=== PATIENT | female | born 1940 | race Caucasian/White ===

== ENCOUNTER 2017-04-29 20:25 | Inpatient (IN) | payer MEDICARE, OTHER ==
[~2017-04-29] VITALS: Ht 157.5 cm; Wt 47.4 kg
[~2017-04-29 20:25] MED LIST: ALBU.083IS; ALBU.083IS IH; ALBU3IS INH; ALBU90OI INH; ALBU90OI61 INH; ALEN70 PO; AMLO10 PO; ASPI81CH PO; ASPI81EC; ASPI81EC PO; AZEL137S; AZEL137S NS; AZIT250 PO; Albuterol2.5 MG/0.5 INH; BENZ100A PO; BISA5EC PO; BUPR150ER PO; BUPR150T2; BUPR150T2 PO; Bactrim Ds Tab1 EACH PO; Budeprion Xl300 MG; CEFU500T30 PO; CEPH500 PO; CLOT10; CLOT10 SS; CLOT10 SUSW; CLOTRIMAZOLE SUSW; CONEST.625; CONEST.625 PO; DESL5; DESL5 PO; DOCU100 PO; DOXY100 PO; ERYT500 PO; ESOM20; ESOM20 PO; ESTEST.625 PO; ESZO2 PO; FERR325; FERR325 PO; FLUSAL5005; FLUSAL5005 IH; FURO40 PO; Fosamax70 MG PO; GLYCOLAX; HYDACE5 PO; Keflex500 MG PO; LAVAP17G PO; LEVO750 PO; Levaquin500 MG PO; Levaquin750 MG PO; METO25ER; METO25ER PO; METOPROLOL PO; METPRE4DP PO; MIRALAX17 GM PO; MIRT15 PO; MONT10T; MONT10T PO; Monodox100 MG PO; Mucinex600 MG PO; NITR100CA PO; Nexium40 MG PO; POLY17UD; POLY17UD PO; POTCHL10ER PO; PRED20 PO; PRED5 PO; PREDNISONE PO; PRELIEF; PREMARIN VAGINAL CRE; PROM25 PO; PSECHLCR PO; Prednisone20 MG PO; RANI150 PO; ROSU10TA; ROSU5 PO; RXSULTRIDS PO; SPIRIVA; SULTRIDS PO; THEO300ERA PO; TIOT18; TIOT18 IH; TOPROL XL PO; VAGIFEM10 MCG VAG; VAGIFEM10 MCG VG; VALA500 PO; VITAMIN A TOP; VITAMIN D-32000 UNIT PO; VITAMIN D3 PO; Ventolin Soln3 ML INH; Zithromax250 MG PO; Zofran4 MG PO
[2017-04-29 21:41] LABS: BASOPHILS ABSOLUTE AUTO 0.01 K/mm3 (0.00-0.23); BASOPHILS PERCENT AUTO 0 % (0-2); EOSINOPHILS ABSOLUTE AUTO 0.26 K/mm3 (0.00-0.68); EOSINOPHILS PERCENT AUTO 2 % (0-6); Hematocrit 39.1 % (33.0-51.0); Hemoglobin 12.5 g/dL (11.5-16.0); IMMATURE GRAN ABSOLUTE AUTO 0.09 K/mm3 (0.00-0.10); IMMATURE GRAN PERCENT AUTO 1 % (0-1); LYMPHOCYTES ABSOLUTE AUTO 2.32 K/mm3 (0.84-5.20); LYMPHOCYTES PERCENT AUTO 17 % (21-46); MONOCYTES ABSOLUTE AUTO 1.18 K/mm3 (0.16-1.47); MONOCYTES PERCENT AUTO 9 % (4-13); Mean Corpuscular HGB 29.1 pg (26.0-34.0); Mean Corpuscular Volume 91 fL (80-100); Mean Platelet Volume 9.5 fL (9.1-12.4); NEUTROPHILS ABSOLUTE AUTO 9.83 K/mm3 (1.96-9.15); NEUTROPHILS PERCENT AUTO 72 % (41-73); Platelet Count 209 K/mm3 (150-400); RDW Coefficient Variation 16.7 % (11.7-14.2); RDW Standard Deviation 55.2 fL (35.1-46.3); White Blood Cell Count 13.69 K/mm3 (4.00-11.30)
[2017-04-29 22:04] LABS: Alanine Aminotransfer (ALT/SGP 11 U/L (12-78); Albumin, Blood 2.6 g/dL (3.4-5.0); Albumin/Globulin Ratio 0.8 (0.8-1.8); Alk Phos 82 U/L (50-136); Anion Gap 7 mmol/L (6-16); Aspartate Aminotrans (AST/SGOT 10 U/L (12-37); Bilirubin, Total 0.5 mg/dL (0.1-1.0); Blood Urea Nitrogen 18 mg/dL (8-24); Bun/Creatinine Ratio 26.7 (12.0-20.0); CO2, Blood 24 mmol/L (21-32); Calcium, Blood 8.2 mg/dL (8.5-10.1); Chloride, Blood 108 mmol/L (98-108); Creatinine, Blood 0.67 mg/dL (0.40-1.00); Globulin, Blood 3.4 g/dL (2.2-4.0); Glomerular Filtration Rate >60 (60-); Glucose, Blood 88 mg/dL (70-99); Sodium, Blood 139 mmol/L (136-145); Troponin I <0.015 ng/mL (0.000-0.040)
[2017-04-29 22:58] LABS: Source, Urine Clean Catch
[2017-04-29 23:00] LABS: Blood, Urine 2+ (Neg); Glucose Qualitative, Urine Neg (Neg); Ketones, Urine 1+ (Neg); Leukocyte Esterase, Urine 3+ (Neg); Nitrite, Urine Pos (Neg); Protein, Urine 2+ (Neg); Specific Gravity, Urine 1.005 (1.003-1.022); Urobilinogen, Urine 3+ (Normal)
[2017-04-29 23:03] LABS: Appearance, Urine Cloudy (Clear); Color, Urine Orange (P-Yellow)
[2017-04-29 23:06] LABS: Bilirubin, Urine 3+ (Neg)
[2017-04-29 23:22] LABS: Bacteria Many /hpf; Red Blood Cells, Urine 0-2 /hpf (0-2); Squamous Epithelial Cells Few /hpf (Few); White Blood Cells, Urine TNTC /hpf (0-5)
[2017-04-30 03:03] LABS: Influenza A Negative (NEGATIVE); Influenza B Negative (NEGATIVE)
[2017-04-30 05:18] LABS: BASOPHILS ABSOLUTE AUTO 0.01 K/mm3 (0.00-0.23); BASOPHILS PERCENT AUTO 0 % (0-2); EOSINOPHILS ABSOLUTE AUTO 0.04 K/mm3 (0.00-0.68); EOSINOPHILS PERCENT AUTO 0 % (0-6); Hematocrit 39.8 % (33.0-51.0); Hemoglobin 12.4 g/dL (11.5-16.0); IMMATURE GRAN ABSOLUTE AUTO 0.08 K/mm3 (0.00-0.10); IMMATURE GRAN PERCENT AUTO 1 % (0-1); LYMPHOCYTES ABSOLUTE AUTO 0.69 K/mm3 (0.84-5.20); LYMPHOCYTES PERCENT AUTO 6 % (21-46); MONOCYTES ABSOLUTE AUTO 0.31 K/mm3 (0.16-1.47); MONOCYTES PERCENT AUTO 3 % (4-13); Mean Corpuscular HGB 28.5 pg (26.0-34.0); Mean Corpuscular HGB Conc 31.2 g/dL (31.5-36.5); Mean Corpuscular Volume 92 fL (80-100); Mean Platelet Volume 9.6 fL (9.1-12.4); NEUTROPHILS ABSOLUTE AUTO 11.15 K/mm3 (1.96-9.15); NEUTROPHILS PERCENT AUTO 91 % (41-73); Platelet Count 209 K/mm3 (150-400); RDW Coefficient Variation 16.6 % (11.7-14.2); RDW Standard Deviation 56.1 fL (35.1-46.3); Red Blood Cell Count 4.35 M/mm3 (3.80-5.20); White Blood Cell Count 12.28 K/mm3 (4.00-11.30)
[2017-04-30 05:50] LABS: Alanine Aminotransfer (ALT/SGP 10 U/L (12-78); Albumin, Blood 2.5 g/dL (3.4-5.0); Albumin/Globulin Ratio 0.7 (0.8-1.8); Alk Phos 84 U/L (50-136); Anion Gap 8 mmol/L (6-16); Aspartate Aminotrans (AST/SGOT 6 U/L (12-37); Bilirubin, Total 0.5 mg/dL (0.1-1.0); Blood Urea Nitrogen 14 mg/dL (8-24); Bun/Creatinine Ratio 24.5 (12.0-20.0); CO2, Blood 24 mmol/L (21-32); Calcium, Blood 8.2 mg/dL (8.5-10.1); Chloride, Blood 109 mmol/L (98-108); Creatinine, Blood 0.57 mg/dL (0.40-1.00); Globulin, Blood 3.4 g/dL (2.2-4.0); Glomerular Filtration Rate >60 (60-); Glucose, Blood 125 mg/dL (70-99); Potassium, Blood 3.9 mmol/L (3.5-5.5); Sodium, Blood 141 mmol/L (136-145); Total Protein, Blood 5.9 g/dL (6.4-8.2)
[2017-05-02 05:45] LABS: BASOPHILS PERCENT AUTO 0 % (0-2); EOSINOPHILS PERCENT AUTO 0 % (0-6); Hematocrit 34.7 % (33.0-51.0); Hemoglobin 11.1 g/dL (11.5-16.0); IMMATURE GRAN ABSOLUTE AUTO 0.04 K/mm3 (0.00-0.10); IMMATURE GRAN PERCENT AUTO 0 % (0-1); LYMPHOCYTES ABSOLUTE AUTO 0.59 K/mm3 (0.84-5.20); LYMPHOCYTES PERCENT AUTO 5 % (21-46); MONOCYTES ABSOLUTE AUTO 0.36 K/mm3 (0.16-1.47); MONOCYTES PERCENT AUTO 3 % (4-13); Mean Corpuscular HGB 28.4 pg (26.0-34.0); Mean Platelet Volume 9.8 fL (9.1-12.4); NEUTROPHILS ABSOLUTE AUTO 11.16 K/mm3 (1.96-9.15); NEUTROPHILS PERCENT AUTO 92 % (41-73); Platelet Count 245 K/mm3 (150-400); RDW Coefficient Variation 16.2 % (11.7-14.2); RDW Standard Deviation 51.9 fL (35.1-46.3); Red Blood Cell Count 3.91 M/mm3 (3.80-5.20); White Blood Cell Count 12.15 K/mm3 (4.00-11.30)
[2017-05-02 05:46] LABS: Mean Corpuscular Volume 89 fL (80-100)
[2017-05-02 06:12] LABS: Anion Gap 8 mmol/L (6-16); Blood Urea Nitrogen 30 mg/dL (8-24); Bun/Creatinine Ratio 53.5 (12.0-20.0); CO2, Blood 29 mmol/L (21-32); Calcium, Blood 8.6 mg/dL (8.5-10.1); Chloride, Blood 107 mmol/L (98-108); Creatinine, Blood 0.56 mg/dL (0.40-1.00); Glomerular Filtration Rate >60 (60-); Glucose, Blood 161 mg/dL (70-99); Potassium, Blood 3.8 mmol/L (3.5-5.5); Sodium, Blood 144 mmol/L (136-145); Vancomycin, Trough 3.4 ug/mL (5.0-10.0)
[2017-05-03] MEDS ORDERED: AZIT500 PO (11:41)
[2017-05-03] MEDS ORDERED: ACIDOPHILUS1 EAC2 PO (11:44)
[2017-05-03] MEDS ORDERED: DIABETIC TUSSI (11:48)
[2017-05-03] MEDS ORDERED: CEFU500T30 PO (11:49)
[2017-05-03] MEDS ORDERED: DELTASONE20 MG PO (11:52)
[2017-05-03] MEDS ORDERED: PROVENTIL INH ×2 (11:58→12:09)
[2018-01-31] MEDS ORDERED: ALBU90OI61 INH (00:47)
[2018-01-31] MEDS ORDERED: Lasix40 MG PO (02:14)
== END 2017-05-03 13:35 | disposition home or self-care (01) | DRG 193 ==
LOC: ER 20:25 → MEDS 04-30 00:55 → ENPENDDIS 05-03 10:00 → MEDS 05-03 13:35
PROVIDERS: Emergency Medicine; Internal Medicine
DX: J18.9 Pneumonia, unspecified organism (principal); J96.21 Acute and chronic respiratory failure with hypoxia; N39.0 Urinary tract infection, site not specified; J44.0 Chronic obstructive pulmonary disease with (acute) lower respiratory infection; J44.1 Chronic obstructive pulmonary disease with (acute) exacerbation; I10 Essential (primary) hypertension; B96.89 Other specified bacterial agents as the cause of diseases classified elsewhere; R31.9 Hematuria, unspecified; Z87.891 Personal history of nicotine dependence
CPT/HCPCS: 36415; 71045; 71046; 80048; 80053; 80202; 81001; 83605; 84484; 85025; 87040; 87077; 87086; 87186; 87804; 93005; 93010; 94640; 94667; 94760; 96365; 99285; J0456; J0696; J1650; J2405; J2930; J3370; J7050

== ENCOUNTER → 2017-07-15 | Outpatient (CLI) | payer MEDICARE, OTHER ==
[~2017-07-15] MED LIST changes: +ACIDOPHILUS1 EAC2 PO; +AZIT500 PO; +DELTASONE20 MG PO; +DIABETIC TUSSI; +PROVENTIL INH
[2017-07-17 12:58] LABS: HPV Genotype 16 Not Detected (NOTDET); HPV Genotype 18 Not Detected (NOTDET)
[2017-07-23 09:03] LABS: HPV High Risk Other Not Detected (NOTDET)
== END | disposition home or self-care (01) ==
LOC: LAB SHORT 15:50 → OLS 15:50
PROVIDERS: Obstetrics & Gynecology Gynecology
DX: Z12.72 Encounter for screening for malignant neoplasm of vagina (principal)
CPT/HCPCS: 87624; G0123

== ENCOUNTER → 2017-09-19 | Outpatient (CLI) | payer MEDICARE, OTHER ==
[2017-09-19 13:06] LABS: Source, Urine Catheter
[2017-09-19 14:27] LABS: Appearance, Urine Clear (Clear); Bilirubin, Urine Neg (Neg); Blood, Urine Neg (Neg); Color, Urine Yellow (P-Yellow); Glucose Qualitative, Urine Neg (Neg); Ketones, Urine Neg (Neg); Leukocyte Esterase, Urine 3+ (Neg); Nitrite, Urine Neg (Neg); Protein, Urine Neg (Neg); Urobilinogen, Urine NORM (Normal)
[2017-09-19 14:44] LABS: White Blood Cells, Urine 25-50 /hpf (0-5)
[2017-09-19 14:45] LABS: Bacteria Many /hpf; Calcium Oxalate Crystals Few /hpf; Red Blood Cells, Urine 0-2 /hpf (0-2); Squamous Epithelial Cells Few /hpf (Few)
== END ==
LOC: LAB SHORT 12:47 → OLS 12:47
PROVIDERS: Obstetrics & Gynecology Gynecology
DX: R33.9 Retention of urine, unspecified (principal)
CPT/HCPCS: 81001; 87077; 87086; 87186

== ENCOUNTER 2017-12-02 12:19 | Day surgery (SDC) | payer MEDICARE, OTHER ==
[~2017-12-02] VITALS: Ht 157.5 cm; Wt 50.7 kg
== END 2017-12-02 14:10 | disposition home or self-care (01) ==
LOC: ORSCSDS 12:19
PROVIDERS: Internal Medicine Gastroenterology
PROC: 0DB98ZX Excision of Duodenum, Via Natural or Artificial Opening Endoscopic, Diagnostic (ICD-10-PCS; principal; 2017-12-02 13:45)
DX: Z86.010 Personal history of colon polyps (principal); I89.0 Lymphedema, not elsewhere classified; K44.9 Diaphragmatic hernia without obstruction or gangrene; J44.9 Chronic obstructive pulmonary disease, unspecified; I10 Essential (primary) hypertension; E78.5 Hyperlipidemia, unspecified; I48.0 Paroxysmal atrial fibrillation; J45.909 Unspecified asthma, uncomplicated; Z87.891 Personal history of nicotine dependence; Z79.82 Long term (current) use of aspirin; Z79.899 Other long term (current) drug therapy
CPT/HCPCS: J7120

== ENCOUNTER → 2017-12-03 | Outpatient (CLI) | payer MEDICARE, OTHER ==
[2017-12-03 19:31] LABS: Source, Urine Catheter
[2017-12-03 20:08] LABS: Appearance, Urine Clear (Clear); Bilirubin, Urine Neg (Neg); Blood, Urine Neg (Neg); Color, Urine Yellow (P-Yellow); Glucose Qualitative, Urine Neg (Neg); Ketones, Urine Neg (Neg); Leukocyte Esterase, Urine 2+ (Neg); Nitrite, Urine Neg (Neg); Protein, Urine 1+ (Neg); Urobilinogen, Urine NORM (Normal)
[2017-12-03 20:31] LABS: Bacteria Mod /hpf; Calcium Oxalate Crystals Few /hpf; Red Blood Cells, Urine 0-2 /hpf (0-2); Squamous Epithelial Cells Mod /hpf (Few)
== END | disposition home or self-care (01) ==
LOC: LAB 17:16 → LAB SHORT 17:16
PROVIDERS: Obstetrics & Gynecology Gynecology
DX: R30.0 Dysuria (principal)
CPT/HCPCS: 81001; 87077; 87086; 87186

== ENCOUNTER 2018-04-22 06:13 | Inpatient (IN) | payer MEDICARE, OTHER ==
[~2018-04-22] VITALS: Ht 157.5 cm; Wt 49.7 kg
[~2018-04-22 06:13] MED LIST changes: +FLUT1DIS8 INH; +Lasix40 MG PO; +TIOT18 INH
[2018-04-22 06:39] LABS: BASOPHILS ABSOLUTE AUTO 0.04 K/mm3 (0.00-0.23); BASOPHILS PERCENT AUTO 0 % (0-2); EOSINOPHILS ABSOLUTE AUTO 0.25 K/mm3 (0.00-0.68); EOSINOPHILS PERCENT AUTO 2 % (0-6); Hematocrit 42.6 % (33.0-51.0); Hemoglobin 13.6 g/dL (11.5-16.0); IMMATURE GRAN ABSOLUTE AUTO 0.11 K/mm3 (0.00-0.10); IMMATURE GRAN PERCENT AUTO 1 % (0-1); LYMPHOCYTES ABSOLUTE AUTO 2.73 K/mm3 (0.84-5.20); LYMPHOCYTES PERCENT AUTO 21 % (21-46); MONOCYTES ABSOLUTE AUTO 0.97 K/mm3 (0.16-1.47); MONOCYTES PERCENT AUTO 7 % (4-13); Mean Corpuscular HGB 29.1 pg (26.0-34.0); Mean Corpuscular HGB Conc 31.9 g/dL (31.5-36.5); Mean Corpuscular Volume 91 fL (80-100); Mean Platelet Volume 9.7 fL (9.1-12.4); NEUTROPHILS ABSOLUTE AUTO 9.07 K/mm3 (1.96-9.15); NEUTROPHILS PERCENT AUTO 69 % (41-73); Platelet Count 225 K/mm3 (150-400); RDW Coefficient Variation 15.9 % (11.7-14.2); RDW Standard Deviation 53.4 fL (35.1-46.3); Red Blood Cell Count 4.68 M/mm3 (3.80-5.20); White Blood Cell Count 13.17 K/mm3 (4.00-11.30)
[2018-04-22 06:44] LABS: PCO2 Arterial 29.8 mmHg (35-45); PO2 Arterial 53.9 mmHg (80-100); pH Blood Arterial 7.44 (7.35-7.45)
[2018-04-22 06:53] LABS: Anion Gap 9 mmol/L (6-16); Blood Urea Nitrogen 13 mg/dL (8-24); Bun/Creatinine Ratio 18.6 (12.0-20.0); CO2, Blood 21 mmol/L (21-32); Calcium, Blood 8.2 mg/dL (8.5-10.1); Chloride, Blood 110 mmol/L (98-108); Glomerular Filtration Rate >60 (60-); Glucose, Blood 112 mg/dL (70-99); Potassium, Blood 4.3 mmol/L (3.5-5.5); Sodium, Blood 140 mmol/L (136-145); Troponin I <0.015 ng/mL (0.000-0.040)
[2018-04-22 10:58] LABS: Bilirubin, Urine Neg (Neg); Blood, Urine Neg (Neg); Glucose Qualitative, Urine Neg (Neg); Ketones, Urine 3+ (Neg); Leukocyte Esterase, Urine Neg (Neg); Nitrite, Urine Neg (Neg); Protein, Urine Neg (Neg); Specific Gravity, Urine 1.015 (1.003-1.022); Urobilinogen, Urine NORM (Normal)
[2018-04-22 11:11] LABS: Appearance, Urine Hazy (Clear); Bacteria Not Seen /hpf; Color, Urine Yellow (P-Yellow); Red Blood Cells, Urine Not Seen /hpf (0-2); Squamous Epithelial Cells Many /hpf (Few); White Blood Cells, Urine Not Seen /hpf (0-5)
--- NOTE | 2018-04-22 14:11 | NUR ---
NURSING PCU DAYSHIFT: Assumed care of pt at approx 1310. Arrived from ER via gurney accompanied by RN, briana w/SBA to unit bed with c/o general weakness. A/O, pleasant, cooperative w/care. Denies any pain/discomfort. Skin is fragile w/no breakdown noted. Tele in place, NSR, no c/o CP/pressure, BP stable, no noted edema. L/S w/scattered wheezes t/o and crackles present in LLL, dyspnea w/exertion, O2 sat stable on 4L NC, occ moist CLINICAL LAB ASSISTANT cough. Abd SNT, BT+, hx of urinary retention requiring self catheterization. PIV x1 w/IVF ordered at 125cc/hr. No s/s of acute distress at this time. Call light in reach and pt is able to use w/o difficulty. S/O at bedside, pt and s/o deny any questions/needs regarding plan of care. Seen by PMD in ER, new d/o received. Cont to monitor for any changes.
--- NOTE | 2018-04-22 16:06 | NUR ---
Muna was alert, conversant and in good spirits. No indications of physical discomfort or anxiety. She responded favorably to social attention, humor, and inspirational encouragement. Muna adheres to a traditional sikhism understanding of theology with conventional modes of thought and practice. She derives strength and comfort from her toan commitment, and enjoys to dialogue about anabaptism and life. I provided pastoral companionship and audible prayer for recovery and courage. Muna engaged well and verbalized appreciation.
--- NOTE | 2018-04-22 17:50 | NUR ---
NURSING PCU DAYSHIFT SUMMARY: No significant changes noted since arrival to the unit. VS have remained stable, respiratory and cardiac status unchanged. Pt OOB to bathroom w/need for line management only, cath supplies provided to pt, able to self cath w/o difficulty. RT currently at bedside for breathing treatment, pt tolerating well. Denies any current needs or questions regarding plan of care, call light in reach, cont to monitor until rpt is given to NOC RN.
[2018-04-22] MEDS ORDERED: ALBU2.5V5 NEB (18:17)
[2018-04-22] MEDS ORDERED: AZELASTINE137 MCG/0. (18:19)
[2018-04-22] MEDS ORDERED: PANT40 PO (18:21)
[2018-04-22] MEDS ORDERED: MUPI1NAS EXT (18:23)
[2018-04-23 04:09] LABS: BASOPHILS ABSOLUTE AUTO 0.01 K/mm3 (0.00-0.23); BASOPHILS PERCENT AUTO 0 % (0-2); EOSINOPHILS PERCENT AUTO 0 % (0-6); Hematocrit 37.1 % (33.0-51.0); Hemoglobin 11.9 g/dL (11.5-16.0); IMMATURE GRAN ABSOLUTE AUTO 0.03 K/mm3 (0.00-0.10); IMMATURE GRAN PERCENT AUTO 0 % (0-1); LYMPHOCYTES ABSOLUTE AUTO 0.61 K/mm3 (0.84-5.20); LYMPHOCYTES PERCENT AUTO 6 % (21-46); MONOCYTES PERCENT AUTO 2 % (4-13); Mean Corpuscular HGB 28.7 pg (26.0-34.0); Mean Corpuscular HGB Conc 32.1 g/dL (31.5-36.5); Mean Corpuscular Volume 90 fL (80-100); Mean Platelet Volume 10.4 fL (9.1-12.4); NEUTROPHILS ABSOLUTE AUTO 9.47 K/mm3 (1.96-9.15); NEUTROPHILS PERCENT AUTO 92 % (41-73); Platelet Count 214 K/mm3 (150-400); RDW Coefficient Variation 15.4 % (11.7-14.2); Red Blood Cell Count 4.14 M/mm3 (3.80-5.20); White Blood Cell Count 10.32 K/mm3 (4.00-11.30)
[2018-04-23 04:27] LABS: Anion Gap 9 mmol/L (6-16); Blood Urea Nitrogen 16 mg/dL (8-24); Bun/Creatinine Ratio 23.7 (12.0-20.0); CO2, Blood 21 mmol/L (21-32); Calcium, Blood 7.7 mg/dL (8.5-10.1); Chloride, Blood 114 mmol/L (98-108); Creatinine, Blood 0.68 mg/dL (0.40-1.00); Glomerular Filtration Rate >60 (60-); Glucose, Blood 173 mg/dL (70-99); Potassium, Blood 3.2 mmol/L (3.5-5.5); Sodium, Blood 144 mmol/L (136-145)
--- NOTE | 2018-04-23 06:20 | NUR ---
SHIFT SUMMARY PT ALERT AND ORIENTED. VS STABLE. O2 SATS WERE REMAINING IN MID 80'S ON 4L NC AND SHE WAS SWITCHED TO HIGH FLOW AT 9LPM. O2 SATS HAVE REMAINED ABOVE 91 WITH 9L HIGH FLOW. PT HAS DRY PERSISTANT COUGH. LS WHEEZES THROUGHOUT WITH CRACKLES IN THE LLL. PT HAS BEEN AMBULATING TO THE BATHROOM NEEDED TO SELF CATH. REPEAT CHEST XR THIS AM. WILL CONTINUE TO MONITOR AND REPORT TO ONCOMING RN. CALL LIGHT IN REACH.
[2018-04-23 08:01] LABS: Magnesium, Blood 1.9 mg/dL (1.6-2.4); Phosphorus, Blood 2.2 mg/dL (2.5-4.9)
--- NOTE | 2018-04-23 15:49 | NUR ---
Muna was approachable, friendly, and comfortable. No reports of physical pain or distress. I created an opportunity for reminiscence, and provided active listening and positive life review facilitation. Muna engaged well and seemed to find the interaction nostalgic and enjoyable. I provided soft acoustic guitar music with subdued inspirational singing for relaxation, and non-pharmaceutical encouragement. Muna expressed satisfaction and happiness.
--- NOTE | 2018-04-23 17:43 | NUR ---
END OF SHIFT; PT HAD NO ACUTE CHANGES IN CONDITION NOTED TODAY. ORDERED PULMONOLOGY CONSULT. CAME TO SEE PATEINT AND NEW ORDERS FOR LABS AND RAD RECEIVED. PT HAS NS RUNNING AT 125ML/HR SHE AMBULATES TO AND FROM BATHROOM WITHIOUT ASSIST SELF CATHS. SHE DOES HAVE EPISODES OF HYPOXIA WHEN AMBULATING TO BATHROOM AND BACK. PT HAS PLEASANT AFFECT IS COOPERATIVE WITH CARE. PT HAS GOOD APPETITE. LUNGS HAVE INSPIRATORY AND EXPIRATORY WHEEZES NOTED. SHE IS USING PHYSIOTHERAPY MACHINE PER MD ORDER THIS AFTERNOON AND TOLERATES IT WELL. WILL CONTINUE TO MONITOR THIS PATIENT CLOSELY UNTIL REPORT AND HAND OFF TO NOC SHIFT RN.
[2018-04-24 04:09] LABS: BASOPHILS ABSOLUTE AUTO 0.01 K/mm3 (0.00-0.23); BASOPHILS PERCENT AUTO 0 % (0-2); EOSINOPHILS PERCENT AUTO 0 % (0-6); Hematocrit 36.4 % (33.0-51.0); Hemoglobin 11.6 g/dL (11.5-16.0); IMMATURE GRAN ABSOLUTE AUTO 0.05 K/mm3 (0.00-0.10); IMMATURE GRAN PERCENT AUTO 0 % (0-1); LYMPHOCYTES ABSOLUTE AUTO 0.46 K/mm3 (0.84-5.20); LYMPHOCYTES PERCENT AUTO 4 % (21-46); MONOCYTES ABSOLUTE AUTO 0.29 K/mm3 (0.16-1.47); MONOCYTES PERCENT AUTO 3 % (4-13); Mean Corpuscular HGB 28.6 pg (26.0-34.0); Mean Corpuscular HGB Conc 31.9 g/dL (31.5-36.5); Mean Corpuscular Volume 90 fL (80-100); Mean Platelet Volume 9.6 fL (9.1-12.4); NEUTROPHILS ABSOLUTE AUTO 10.51 K/mm3 (1.96-9.15); NEUTROPHILS PERCENT AUTO 93 % (41-73); Platelet Count 228 K/mm3 (150-400); RDW Coefficient Variation 15.3 % (11.7-14.2); RDW Standard Deviation 50.4 fL (35.1-46.3); Red Blood Cell Count 4.05 M/mm3 (3.80-5.20); White Blood Cell Count 11.32 K/mm3 (4.00-11.30)
[2018-04-24 04:25] LABS: Albumin, Blood 2.3 g/dL (3.4-5.0); Anion Gap 8 mmol/L (6-16); Blood Urea Nitrogen 14 mg/dL (8-24); Bun/Creatinine Ratio 24.1 (12.0-20.0); CO2, Blood 25 mmol/L (21-32); Calcium, Blood 7.6 mg/dL (8.5-10.1); Chloride, Blood 113 mmol/L (98-108); Creatinine, Blood 0.58 mg/dL (0.40-1.00); Glomerular Filtration Rate >60 (60-); Glucose, Blood 137 mg/dL (70-99); Phosphorus, Blood 2.1 mg/dL (2.5-4.9); Potassium, Blood 2.7 mmol/L (3.5-5.5); Sodium, Blood 146 mmol/L (136-145)
--- NOTE | 2018-04-24 06:25 | NUR ---
SHIFT SUMMARY- PT HAS REMAINED AOX4 THROUGHOUT SHIFT. VSS. PLEASANT AND COOPERATIVE WITH CARE. PT CONTINUES TO AMBULATE WITH STANDBY ASSIST AND SELF CATHETERIZES INDEPENDENTLY. O2 SATS REMAINED >90% ON 9L VIA HIGH FLOW NASAL CANNULA AT REST. PT BECOMES DYSPNEIC ON EXERTION WITH SATS THAT DECREASE TO THE HIGH 70'S- SATS INCREASE WITHIN 2 MINUTES OF REST AND PURSED LIP BREATHING TO >90%. PT REQUIRES ENCOURAGEMENT TO DO PURSED LIP BREATHING TECHNIQUE WHEN BECOMING SHORT OF BREATH. PT BECOMES SLIGHTLY ANXIOUS WITH CONTINUOUS BIOX BEEPING WITH LOW SATURATIONS. NO OTHER CHANGES FROM INTIAL ASSESSMENT. WILL CONTINUE TO MONITOR AND REPORT TO ONCOMING RN. BED IN LOW POSITION, CALL LIGHT IN REACH.
--- NOTE | 2018-04-24 18:12 | NUR ---
END OF SHIFT; PT PLACED ON AIRVO AT 40% TODAY. TOLERATED WELL AFTER INITIAL PERIOD OF ANXIETY. IS ABLE TO GET UP TO BATHROOM WITHOUT ASSIST. HAS DECREASED APPETITE TODAY. FLUIDS INFUSING ORDERED AT 125ML/HR. LUNGS HAVE INSPIRATORY AND EXPIRATORY WHEEZES NOTED. COARSE IN THE BASES. VITAL SIGNS ARE STABLE CHARTED. PULSE SLIGHTLY ELEVATED AT 100. NOT FEBRILE. WILL CONTINUE TO MONITOR THIS PATIENT CLOSELY UNTIL REPORT AND HAND OFF TO NOC SHIFT RN.
[2018-04-25 04:01] LABS: BASOPHILS PERCENT AUTO 0 % (0-2); EOSINOPHILS PERCENT AUTO 0 % (0-6); Hematocrit 34.6 % (33.0-51.0); Hemoglobin 11.2 g/dL (11.5-16.0); IMMATURE GRAN ABSOLUTE AUTO 0.05 K/mm3 (0.00-0.10); IMMATURE GRAN PERCENT AUTO 1 % (0-1); LYMPHOCYTES ABSOLUTE AUTO 0.57 K/mm3 (0.84-5.20); LYMPHOCYTES PERCENT AUTO 7 % (21-46); MONOCYTES ABSOLUTE AUTO 0.42 K/mm3 (0.16-1.47); MONOCYTES PERCENT AUTO 5 % (4-13); Mean Corpuscular HGB 28.5 pg (26.0-34.0); Mean Corpuscular HGB Conc 32.4 g/dL (31.5-36.5); Mean Corpuscular Volume 88 fL (80-100); Mean Platelet Volume 9.7 fL (9.1-12.4); NEUTROPHILS ABSOLUTE AUTO 7.05 K/mm3 (1.96-9.15); NEUTROPHILS PERCENT AUTO 87 % (41-73); Platelet Count 216 K/mm3 (150-400); RDW Coefficient Variation 15.4 % (11.7-14.2); RDW Standard Deviation 49.3 fL (35.1-46.3); Red Blood Cell Count 3.93 M/mm3 (3.80-5.20); White Blood Cell Count 8.09 K/mm3 (4.00-11.30)
[2018-04-25 04:19] LABS: Anion Gap 9 mmol/L (6-16); Blood Urea Nitrogen 10 mg/dL (8-24); Bun/Creatinine Ratio 17.2 (12.0-20.0); CO2, Blood 28 mmol/L (21-32); Chloride, Blood 108 mmol/L (98-108); Creatinine, Blood 0.58 mg/dL (0.40-1.00); Glomerular Filtration Rate >60 (60-); Glucose, Blood 135 mg/dL (70-99); Potassium, Blood 2.5 mmol/L (3.5-5.5); Sodium, Blood 145 mmol/L (136-145)
--- NOTE | 2018-04-25 04:40 | NUR ---
POTASSIUM LEVEL THIS AM OF 2.5. DR CHAUHAN NOTIFIED AND NEW ORDERS PROVIDED. WILL ADMINISTER MEDICATION AFTER VERIFICATION FROM PHARMACY.
--- NOTE | 2018-04-25 05:34 | NUR ---
SHIFT SUMMARY PT ALERT AND ORIENTED. VS STABLE. O2 SATS HAVE REMAINED ABOVE 92% ON AIRVO. PT DYSPNEIC WITH EXERTION. LS WHEEZES THROUGHOUT. K+ LEVEL OF 2.5 THIS AM. KCL INFUSING PER ORDERS. PT COMPLAINS OF THRUSH IN HER MOUTH AND MEDICATED PER EMAR. NO OTHER CHANGES SINCE INITIAL ASSESSMENT. WILL CONTINUE TO MONITOR AND REPORT TO ONCOMING RN. CALL LIGHT IN REACH.
--- NOTE | 2018-04-25 17:41 | NUR ---
SHIFT SUMMARY PT RESTING IN BED THROUGHOUT THE DAY. UP TO BEDSIDE COMMODE WITH 1 PERSON ASSIST. ALERT AND ORIENTED X3. DENIES PAIN THROUGHOUT THE DAY. LUNG SOUNDS COARSE WITH EXPIRATORY WHEEZES THROUGHOUT. DYSPNEA ON EXERTION. NSR RATE 90-100s PER TELE. HAD 1 EPISODE OF EMESIS AFTER LUNCH, PT STATES DUE TO HER HIATAL HERNIA, ZOFRAN IV GIVEN FOR NAUSEA. FAMILY AT BEDSIDE THROUGHOUT THE AFTERNOON. WILL CONTINUE TO MONITOR.
[2018-04-26 04:17] LABS: BASOPHILS ABSOLUTE AUTO 0.01 K/mm3 (0.00-0.23); BASOPHILS PERCENT AUTO 0 % (0-2); EOSINOPHILS PERCENT AUTO 0 % (0-6); Hematocrit 37.2 % (33.0-51.0); IMMATURE GRAN ABSOLUTE AUTO 0.07 K/mm3 (0.00-0.10); IMMATURE GRAN PERCENT AUTO 1 % (0-1); LYMPHOCYTES ABSOLUTE AUTO 0.59 K/mm3 (0.84-5.20); LYMPHOCYTES PERCENT AUTO 8 % (21-46); MONOCYTES PERCENT AUTO 7 % (4-13); Mean Corpuscular HGB 28.4 pg (26.0-34.0); Mean Corpuscular HGB Conc 32.3 g/dL (31.5-36.5); Mean Corpuscular Volume 88 fL (80-100); Mean Platelet Volume 9.4 fL (9.1-12.4); NEUTROPHILS ABSOLUTE AUTO 6.47 K/mm3 (1.96-9.15); NEUTROPHILS PERCENT AUTO 85 % (41-73); Platelet Count 243 K/mm3 (150-400); RDW Coefficient Variation 15.2 % (11.7-14.2); RDW Standard Deviation 48.1 fL (35.1-46.3); Red Blood Cell Count 4.23 M/mm3 (3.80-5.20); White Blood Cell Count 7.64 K/mm3 (4.00-11.30)
[2018-04-26 04:34] LABS: Albumin, Blood 2.6 g/dL (3.4-5.0); Anion Gap 9 mmol/L (6-16); Blood Urea Nitrogen 14 mg/dL (8-24); Bun/Creatinine Ratio 23.5 (12.0-20.0); CO2, Blood 29 mmol/L (21-32); Calcium, Blood 7.6 mg/dL (8.5-10.1); Chloride, Blood 105 mmol/L (98-108); Glomerular Filtration Rate >60 (60-); Glucose, Blood 141 mg/dL (70-99); Phosphorus, Blood 3.2 mg/dL (2.5-4.9); Potassium, Blood 3.2 mmol/L (3.5-5.5); Sodium, Blood 143 mmol/L (136-145)
--- NOTE | 2018-04-26 05:26 | NUR ---
SHIFT SUMMARY PT ALERT AND ORIENTED. VS STABLE. O2 SATS >9O% ON AIRVO AT 40%. PT DESATURATES TO MID 80'S WITH EXERTION, BUT RECOVERS QUICKLY. PT HAS COMPLAINED OF NAUSEA ON AND OFF THROUGHOUT SHIFT. PT STATES SHE HAS A HIATAL HERNIA THAT CAUSES THE NAUSEA. PT UP TO BSC TO VOID BY SELF CATH. NO OTHER CHANGES SINCE INITIAL ASSESSMENT. WILL CONTINUE TO MONITOR AND REPORT TO ONCOMING RN. CALL LIGHT IN REACH.
--- NOTE | 2018-04-26 18:03 | NUR ---
SHIFT SUMMARY PT RESTING IN BED THROUGHOUT THE DAY. VSS. ALERT AND ORIENTED X3. DENIES PAIN THROUGHOUT THE DAY. LUNG SOUNDS COARSE WITH EXPIRATORY WHEEZES THROUGHOUT. DYSPNEA ON EXERTION. TOLERATING AIRVO 40L 60% FIO2 FOR MEALS AND VENTI MASK 14L 55% FIO2 THE MAJORITY OF THE DAY. UP TO BEDSIDE COMMODE WITH STANDBY ASSIST, STRAIGHT CATHS SELF. SKIN TEAR TO LEFT CHEN AND LEFT UPPER ARM DRSGS CDI. FAMILY AT BEDSIDE THROUGHOUT THE DAY. WILL CONTINUE TO MONITOR.
[2018-04-27 03:49] LABS: Albumin, Blood 2.6 g/dL (3.4-5.0); Anion Gap 6 mmol/L (6-16); Blood Urea Nitrogen 17 mg/dL (8-24); Bun/Creatinine Ratio 27.5 (12.0-20.0); CO2, Blood 33 mmol/L (21-32); Chloride, Blood 101 mmol/L (98-108); Creatinine, Blood 0.62 mg/dL (0.40-1.00); Glomerular Filtration Rate >60 (60-); Glucose, Blood 190 mg/dL (70-99); Phosphorus, Blood 2.8 mg/dL (2.5-4.9); Potassium, Blood 3.5 mmol/L (3.5-5.5); Sodium, Blood 140 mmol/L (136-145)
--- NOTE | 2018-04-27 05:14 | NUR ---
SHIFT SUMMARY PT A&O X4, CALM AND COOPERATIVE, ABLE TO SLEEP MOST OF NIGHT. PT WEARING VENTI MASK @ 14L T/O NIGHT, W/ SWITCH TO AIRVO @ 40L THIS MORNING. LUNG SOUNDS CONTINUE TO BE COARSE W/ EXP WHEEZE HEART T/O. MONITOR SHOWS SR/ST, HR 90-110. PT SBA TO BSC TO SELF CATH. SPO2 DECREASE TO 84% WHEN GETTING UP TO COMMODE. PT ABLE TO QUICKLY RECOVER WHEN AT REST. NO C/O PAIN OR DISCOMFORT T/O NIGHT. WILL CONTINUE TO MONITOR AND PROVIDE CARE UNTIL REPORT OFF TO DAY SHIFT RN.
--- NOTE | 2018-04-27 17:57 | NUR ---
SHIFT SUMMARY PT RESTING IN BED THROUGHOUT THE DAY. VSS. ALERT AND ORIENTED X3. DENIES PAIN THROUGHOUT THE DAY. UP TO BEDSIDE COMMODE WITH STANDBY ASSIST, SELF CATHS FOR RETENTION NEEDED. LUNG SOUNDS COARSE THROUGHOUT, DYSPNEA ON EXERTION. SKIN TEARS TO LEFT CHEN AND LEFT UPPER ARM, DRSGS CDI. WILL CONTINUE TO MONITOR.
[2018-04-28 04:10] LABS: BASOPHILS ABSOLUTE AUTO 0.03 K/mm3 (0.00-0.23); BASOPHILS PERCENT AUTO 0 % (0-2); EOSINOPHILS PERCENT AUTO 0 % (0-6); Hematocrit 40.1 % (33.0-51.0); Hemoglobin 12.9 g/dL (11.5-16.0); IMMATURE GRAN ABSOLUTE AUTO 0.23 K/mm3 (0.00-0.10); IMMATURE GRAN PERCENT AUTO 2 % (0-1); LYMPHOCYTES ABSOLUTE AUTO 0.59 K/mm3 (0.84-5.20); LYMPHOCYTES PERCENT AUTO 4 % (21-46); MONOCYTES PERCENT AUTO 3 % (4-13); Mean Corpuscular HGB 28.6 pg (26.0-34.0); Mean Corpuscular HGB Conc 32.2 g/dL (31.5-36.5); Mean Corpuscular Volume 89 fL (80-100); NEUTROPHILS ABSOLUTE AUTO 12.31 K/mm3 (1.96-9.15); NEUTROPHILS PERCENT AUTO 91 % (41-73); NRBC ABSOLUTE 0.04 K/mm3 (0.00-0.02); NRBC Auto 0.3 /100 WBC (0.0-0.2); Platelet Count 297 K/mm3 (150-400); RDW Coefficient Variation 15.2 % (11.7-14.2); RDW Standard Deviation 48.4 fL (35.1-46.3); Red Blood Cell Count 4.51 M/mm3 (3.80-5.20); White Blood Cell Count 13.56 K/mm3 (4.00-11.30)
[2018-04-28 04:28] LABS: Albumin, Blood 2.6 g/dL (3.4-5.0); Anion Gap 8 mmol/L (6-16); Blood Urea Nitrogen 25 mg/dL (8-24); Bun/Creatinine Ratio 37.1 (12.0-20.0); CO2, Blood 30 mmol/L (21-32); Calcium, Blood 8.2 mg/dL (8.5-10.1); Chloride, Blood 100 mmol/L (98-108); Creatinine, Blood 0.67 mg/dL (0.40-1.00); Glomerular Filtration Rate >60 (60-); Glucose, Blood 199 mg/dL (70-99); Phosphorus, Blood 2.9 mg/dL (2.5-4.9); Sodium, Blood 138 mmol/L (136-145)
--- NOTE | 2018-04-28 06:29 | NUR ---
SHIFT SUMMARY- PT HAS REMAINED AOX4 THROUGHOUT SHIFT. VSS. PLEASANT AND COOPERATIVE WITH CARE. PT CONTINUES TO AMBULATE WITH STANDBY ASSIST TO THE BEDSIDE COMMODE AND CONTINUES TO SELF CATHETERIZE FOR URINE RETENTION. O2 SATS REMAIN >90% ON AIRVO AT 40L AND 60% FI02 OR 11L VIA HFNC. O2 SATS DECREASE TO LOW-MID 80'S WITH AMBULATION, BUT RECOVER QUICKLY WITH PURSED LIP BREATHING TECHNIQUES AND CALMING ENCOURAGEMENT FROM NURSING STAFF- PT WILL RECOVER O2 SATS TO >90% WITHIN 2 MINUTES. PT ALSO HAS THE POTENTIAL TO DESATURATE WHILE TALKING, AND REQUIRES ENCOURAGEMENT TO TAKE A BREAK FROM VISITING AND BREATH AT TIMES. NO OTHER CHANGES FROM INITIAL ASSESSMENT. WILL CONTINUE TO MONITOR AND REPORT TO ONCOMING RN. BED IN LOW POSITION, CALL LIGHT IN REACH.
--- NOTE | 2018-04-28 17:38 | NUR ---
END OF SHIFT SUMMARY; PT HAD NO ACUTE CHANGES IN CONDITION TODAY. SHE IS COOPERATIVE WITH CARE AND HAS PLEASANT AFFECT. COMES TO SEE PATEINT AND TURNS AIRVO TO 49% AND REMAINS AT 40 LITERS. PT RECEIVED BED BATH TODAY AND WOULD LIKE A SHOWER TOMORROW IF SHE FEELS BETTER. CHEM BG ARE ORDERED FOR PATIETN FOR ELEVATED BLOOD SUGARS AC AND HS. NO INSULIN COVERAGE TODAY CHEM BG ARE ONLY SLIGHTLY ELEVATED. LUNGS ARE COARSE THROUGHOUT. PT UNABLE TO PROVIDE SPUTUM SPECIMEN TO SEND TO LAB. SHE HAS A SKIN TEAR ON HER UPPER LEFT ARM THAT IS CLEANED AND DRESSED. WILL CONTINUE TO MONITOR THIS PATIENT UNTIL REPORT AND HAND OFF TO NOC SHIFT RN.
[2018-04-29 03:58] LABS: BASOPHILS ABSOLUTE AUTO 0.07 K/mm3 (0.00-0.23); BASOPHILS PERCENT AUTO 1 % (0-2); EOSINOPHILS ABSOLUTE AUTO 0.01 K/mm3 (0.00-0.68); EOSINOPHILS PERCENT AUTO 0 % (0-6); Hematocrit 44.8 % (33.0-51.0); Hemoglobin 14.1 g/dL (11.5-16.0); IMMATURE GRAN ABSOLUTE AUTO 0.38 K/mm3 (0.00-0.10); IMMATURE GRAN PERCENT AUTO 3 % (0-1); LYMPHOCYTES ABSOLUTE AUTO 0.75 K/mm3 (0.84-5.20); LYMPHOCYTES PERCENT AUTO 5 % (21-46); MONOCYTES ABSOLUTE AUTO 0.44 K/mm3 (0.16-1.47); MONOCYTES PERCENT AUTO 3 % (4-13); Mean Corpuscular HGB 28.4 pg (26.0-34.0); Mean Corpuscular HGB Conc 31.5 g/dL (31.5-36.5); Mean Corpuscular Volume 90 fL (80-100); NEUTROPHILS ABSOLUTE AUTO 13.46 K/mm3 (1.96-9.15); NEUTROPHILS PERCENT AUTO 89 % (41-73); NRBC ABSOLUTE 0.03 K/mm3 (0.00-0.02); NRBC Auto 0.2 /100 WBC (0.0-0.2); RDW Coefficient Variation 15.4 % (11.7-14.2); RDW Standard Deviation 50.2 fL (35.1-46.3); Red Blood Cell Count 4.96 M/mm3 (3.80-5.20); White Blood Cell Count 15.11 K/mm3 (4.00-11.30)
[2018-04-29 04:01] LABS: Mean Platelet Volume 9.8 fL (9.1-12.4); Platelet Count 271 K/mm3 (150-400)
[2018-04-29 04:12] LABS: Albumin, Blood 2.9 g/dL (3.4-5.0); Anion Gap 10 mmol/L (6-16); Blood Urea Nitrogen 33 mg/dL (8-24); Bun/Creatinine Ratio 42.8 (12.0-20.0); CO2, Blood 31 mmol/L (21-32); Calcium, Blood 9.4 mg/dL (8.5-10.1); Chloride, Blood 96 mmol/L (98-108); Creatinine, Blood 0.77 mg/dL (0.40-1.00); Glomerular Filtration Rate >60 (60-); Glucose, Blood 176 mg/dL (70-99); Phosphorus, Blood 5.6 mg/dL (2.5-4.9); Potassium, Blood 4.5 mmol/L (3.5-5.5); Sodium, Blood 137 mmol/L (136-145)
--- NOTE | 2018-04-29 05:52 | NUR ---
SHIFT SUMMARY- PT HAS REMAINED AOX4 THROUGHOUT SHIFT. VSS. PLEASANT AND COOPERATIVE WITH CARE. PT CONTINUES TO AMBULATE WITH STANDBY ASSIST TO THE BEDSIDE COMMODE AND SELF CATHETERIZES NEEDED FOR RETENTION. O2 SATS HAVE REMAINED >90% ON 11L VIA HIGH FLOW NASAL CANNULA, OR ON THE AIRVO WITH SETTINGS OF 40L AND 49% FI02. PT UTILIZED AIRVO FOR APPROXIMATELY 6-7 HOURS LAST NIGHT WITH HIGH FLOW NASAL CANNULA USE INTERMITTENTLY WHEN BREAKS WERE NEEDED. PT REPORTS FEELING MUCH BETTER AND THAT SHE HAS MORE STRENGTH TODAY. LUNG SOUNDS ARE MUCH MORE CLEAR IN THE UPPER LOBES, BUT DIMINISHED, ALL LOWER LOBES REMAIN COARSE BUT SEEM TO HAVE IMPROVED SINCE YESTERDAY. NO OTHER CHANGES FROM INITIAL ASSESSMENT. WILL CONTINUE TO MONITOR AND REPORT TO ONCOMING RN. BED IN LOW POSITION, CALL LIGHT IN REACH.
--- NOTE | 2018-04-29 18:22 | NUR ---
END OF SHIFT; PT HAD NO ACUTE CHANGES IN CONDITION NOTED TODAY. RT HAS CHANGED HER O2 SETTINGS TO 30LITERS. PT TOLERATED WELL NADN. PT HAS PLEASANT AFFECT. COOPERATIVE WITH CARE. HAS ONE EPISODE OF VOMITTING TODAY AND WAS MEDICATED WITH ZOFRAN IVP FOR SAME. PT UP TO BEDSIDE COMMODE WITH ONE PERSON ASSIST. WILL CONTINFUE TO MONITOR THIS PATIENT CLOSELY UNTIL REPORT AND HAND OFF TO NOC SHIFT RN.
[2018-04-30 04:18] LABS: BASOPHILS ABSOLUTE AUTO 0.08 K/mm3 (0.00-0.23); BASOPHILS PERCENT AUTO 0 % (0-2); EOSINOPHILS ABSOLUTE AUTO 0.01 K/mm3 (0.00-0.68); EOSINOPHILS PERCENT AUTO 0 % (0-6); Hematocrit 47.2 % (33.0-51.0); Hemoglobin 14.8 g/dL (11.5-16.0); IMMATURE GRAN ABSOLUTE AUTO 0.42 K/mm3 (0.00-0.10); IMMATURE GRAN PERCENT AUTO 2 % (0-1); LYMPHOCYTES ABSOLUTE AUTO 1.38 K/mm3 (0.84-5.20); LYMPHOCYTES PERCENT AUTO 7 % (21-46); MONOCYTES ABSOLUTE AUTO 0.96 K/mm3 (0.16-1.47); MONOCYTES PERCENT AUTO 5 % (4-13); Mean Corpuscular HGB 27.9 pg (26.0-34.0); Mean Corpuscular HGB Conc 31.4 g/dL (31.5-36.5); Mean Corpuscular Volume 89 fL (80-100); Mean Platelet Volume 9.6 fL (9.1-12.4); NEUTROPHILS ABSOLUTE AUTO 17.13 K/mm3 (1.96-9.15); NEUTROPHILS PERCENT AUTO 86 % (41-73); NRBC ABSOLUTE 0.02 K/mm3 (0.00-0.02); NRBC Auto 0.1 /100 WBC (0.0-0.2); Platelet Count 312 K/mm3 (150-400); RDW Coefficient Variation 15.7 % (11.7-14.2); White Blood Cell Count 19.98 K/mm3 (4.00-11.30)
[2018-04-30 04:38] LABS: Anion Gap 6 mmol/L (6-16); Blood Urea Nitrogen 43 mg/dL (8-24); Bun/Creatinine Ratio 53.9 (12.0-20.0); CO2, Blood 35 mmol/L (21-32); Calcium, Blood 9.3 mg/dL (8.5-10.1); Chloride, Blood 97 mmol/L (98-108); Glomerular Filtration Rate >60 (60-); Glucose, Blood 150 mg/dL (70-99); Phosphorus, Blood 4.9 mg/dL (2.5-4.9); Potassium, Blood 3.6 mmol/L (3.5-5.5); Sodium, Blood 138 mmol/L (136-145)
--- NOTE | 2018-04-30 05:41 | NUR ---
SHIFT SUMMARY PATIENT HAS BEEN ALERT AND ORIENTED X3 THROUGHOUT SHIFT. SHE HAS BEEN PLEASANT AND COOPERATIVE, BUT HAS BEEN SUFFERING FROM NAUSEA AND VOMITING T/O MAJORITY OF THE SHIFT. SHE WAS PROVIDED ORDERED ANTI EMETICS, BUT THESE DID NOT ASSIST WITH HER ISSUE. DOCTOR WAS NOTIFIED OF THIS AND ADDITIONAL MEDICATION ORDERS WERE RECEIVED. PT WBC'S HAVE INCREASED AND DAYSHIFT WILL BE NOTIFIED WHEN THEY COME ON SHIFT. PT HAS REMAINED A [place] [facility] [place] AND SHE HAS BEEN ABLE TO CONTINUE TO SELF CATH WITH ASSISTANCE. PT DENIED ANY UNMET NEEDS, WITH THE EXCEPTION OF HER NEED FOR ANTI EMESIS CARE. SHE IS CURRENTLY SLEEPING SOUNDLY, DENIED ANY NEED FOR PAIN MEDICATION, THOUGH SHE CONTINUES TO FEEL PAIN IN HER ABDOMEN RELATED TO HER HIATAL HERNIA. SHE HAS 2X SIDE RAILS IN PLACE, BED IN THE LOWEST POSITION AND CALL LIGHT WITHIN REACH. SHE HAS BEEN ABLE TO MAKE NEEDS KNOWN. NO ACUTE CHANGES HAVE BEEN OBSERVED TO VITALS OR LOC. PT WILL CONTIUE TO BE MONITORED UNTIL HANDOFF TO DAYSHIFT.
--- NOTE | 2018-04-30 08:24 | NUR ---
NURSING PCU DAYSHIFT: Assumed care of pt at approx 0700. A/O, pleasant, cooperative w/care. Denies any pain/discomfort. Skin is very fragile w/scattered skin tears/abrasions, scattered bruises, no pressure ulcers noted. Ambulates independently though uses call light for line management assistance. Tele in place, ST, no c/o CP/pressure, SBP 120's prior to a.m. meds, no noted edema. L/S coarse t/o and bibasilar crackles, dyspnea w/exertion, O2 sat upper 80's to low 90's on 11L HF NC, continuous bedside O2 monitoring, denies cough at this time. Abd SNT, BT+, frequent c/o nausea, independently self caths. PIV x1, s/l. Pt denies any current questions regarding plan of care though has states several times that she is hopeful for discharge home. Call light in reach and pt is able to use w/o difficulty. Awaiting rounding from PMD. Cont to monitor for any changes.
[2018-04-30] MEDS ORDERED: ACET325 PO (12:03)
[2018-04-30] MEDS ORDERED: BISA10S PR (12:04)
[2018-04-30] MEDS ORDERED: Norvasc2.5 MG PO (12:04)
[2018-04-30] MEDS ORDERED: BENZ100A PO (12:05)
[2018-04-30] MEDS ORDERED: CEFP200 PO ×2 (12:12→12:16)
--- NOTE | 2018-04-30 12:12 | NUR ---
Initial Visit: Received Palliative consult for advance directives and advance care planning. Pt is alert, oriented, bright mood. She is slightly short of breath, but can speak in several sentences before winded. After I introduced myself, she started conversation and is very talkative. She lives with her in a home by the [facility]. She has 3 children and 10 grandchildren. She has strong toan in God, who has directed her life. She talks about this in length. Therapeutic listening during her life review. Her is retired from [employer]. They are from [place], but moved her in . Her son lives in [place], her daughters are still in [place]. She has several professional people in her family, and is a very proud mother and grandmother. Pt quit smoking 10 years ago, but by that time, the damage to her lungs was already done. She reports that she has lived her life well with lung disease - taking care to go to her appointments and do her treatments appropriately. When she has the energy, she takes her portable O2 tank and visits restaurants and shops. She has been to her for 62 years. 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 She is discharging today back to her home. She reports it is tranquil and restful to be there. Pt does have an advance directive. She talked to me about her code status. She has promised her children and grandchildren that she would "try." To her, this means she will be full code and has directed her in the care that she would like if this happens. Living with COPD is difficult and sometimes life may be prolonged by intubation. She realizes that her body is aging and her recovery time for her lungs is getting longer. She is not afraid to , but she is living to the fullest at this moment and enjoying the time God gives her. Will remain available for future admissions. Despite her having an advance directive, she will need further legal counsel when she worsens.
[2018-04-30] MEDS ORDERED: Mucinex600 MG PO (12:18)
[2018-04-30] MEDS ORDERED: ONDA4ODT PO (12:19)
[2018-04-30] MEDS ORDERED: FURO40 PO (12:19)
[2018-04-30] MEDS ORDERED: ACIDOPHILUS100 M1 PO (12:21)
[2018-04-30] MEDS ORDERED: PROM25 PO (12:22)
[2018-04-30] MEDS ORDERED: POTCHL20ER PO (12:56)
[2018-04-30] MEDS ORDERED: DEEP SEA44 ML (12:59)
[2018-04-30] MEDS ORDERED: PRED10 PO (13:01)
--- NOTE | 2018-04-30 14:26 | NUR ---
NURSING PCU DAYSHIFT SUMMARY: No significant changes noted t/o the shift. Seen by PMD, discharge home d/o received. Pt verbalized understanding of all written and verbal discharge instructions. PIV dc'd w/cath intact. Rx's faxed to [facility] per pt request. Home O2 eval completed, awaiting [facility] to arrive for in hospital teaching. No s/s of acute distress at this time, cont to monitor until discharge is complete.
== END 2018-04-30 16:10 | disposition home or self-care (01) | DRG 871 ==
LOC: ER 06:13 → PCU 11:38
PROVIDERS: Emergency Medicine; Family Medicine; ADMIT Internal Medicine
DX: A41.9 Sepsis, unspecified organism (principal); J18.9 Pneumonia, unspecified organism; J96.21 Acute and chronic respiratory failure with hypoxia; Z94.84 Stem cells transplant status; R64 Cachexia; E78.00 Pure hypercholesterolemia, unspecified; Z87.891 Personal history of nicotine dependence; Z99.81 Dependence on supplemental oxygen; I10 Essential (primary) hypertension; M81.0 Age-related osteoporosis without current pathological fracture; E78.5 Hyperlipidemia, unspecified; K21.9 Gastro-esophageal reflux disease without esophagitis; Z79.82 Long term (current) use of aspirin; E87.6 Hypokalemia; J43.9 Emphysema, unspecified; Z68.20 Body mass index [BMI] 20.0-20.9, adult; K44.9 Diaphragmatic hernia without obstruction or gangrene
CPT/HCPCS: 36415; 36600; 71045; 71046; 80048; 80069; 81001; 82803; 82947; 83605; 83735; 83880; 84100; 84132; 84484; 85025; 87040; 87804; 93005; 93010; 93306; 94640; 94667; 94668; 94761; 94762; 96361; 96365; 96367; 96375; 99285-25; J0456; J0696; J1650; J2060; J2405; J2765; J2920; J2930; J3480; J7030; J7050; J7060

== ENCOUNTER 2018-10-20 21:30 | Inpatient (IN) | payer MEDICARE, OTHER ==
[~2018-10-20] VITALS: Ht 157.5 cm; Wt 48.9 kg
[~2018-10-20 21:30] MED LIST changes: +ACET325 PO; +ACIDOPHILUS100 M1 PO; +ALBU2.5V5 NEB; -ASPI81CH PO; +AZELASTINE137 MCG/0.; +Aspirin EC81 MG PO; +BISA10S PR; -Budeprion Xl300 MG; +Budeprion Xl300 MG PO; +CEFP200 PO; +DEEP SEA44 ML; +MUPI1NAS EXT; +Norvasc2.5 MG PO; +ONDA4ODT PO; +PANT40 PO; +POTCHL20ER PO; +PRED10 PO; +Pantoprazole So40 MG PO; +SPIRIVA RESPIMAT4 GM INH; +Toprol Xl25 MG PO
[2018-10-20 21:50] LABS: BASOPHILS ABSOLUTE AUTO 0.04 K/mm3 (0.00-0.23); BASOPHILS PERCENT AUTO 0 % (0-2); EOSINOPHILS PERCENT AUTO 1 % (0-6); Hematocrit 40.5 % (33.0-51.0); Hemoglobin 13.2 g/dL (11.5-16.0); IMMATURE GRAN ABSOLUTE AUTO 0.04 K/mm3 (0.00-0.10); IMMATURE GRAN PERCENT AUTO 0 % (0-1); LYMPHOCYTES PERCENT AUTO 22 % (21-46); MONOCYTES ABSOLUTE AUTO 1.34 K/mm3 (0.16-1.47); MONOCYTES PERCENT AUTO 10 % (4-13); Mean Corpuscular HGB Conc 32.6 g/dL (31.5-36.5); Mean Corpuscular Volume 92 fL (80-100); Mean Platelet Volume 10.5 fL (9.1-12.4); NEUTROPHILS ABSOLUTE AUTO 8.82 K/mm3 (1.96-9.15); NEUTROPHILS PERCENT AUTO 67 % (41-73); Platelet Count 209 K/mm3 (150-400); RDW Coefficient Variation 16.4 % (11.7-14.2); RDW Standard Deviation 56.5 fL (35.1-46.3); White Blood Cell Count 13.24 K/mm3 (4.00-11.30)
[2018-10-20 22:07] LABS: Alanine Aminotransfer (ALT/SGP 13 U/L (12-78); Albumin, Blood 2.9 g/dL (3.4-5.0); Albumin/Globulin Ratio 0.8 (0.8-1.8); Alk Phos 117 U/L (50-136); Anion Gap 7 mmol/L (6-16); Aspartate Aminotrans (AST/SGOT 17 U/L (12-37); Bilirubin, Total 0.5 mg/dL (0.1-1.0); Blood Urea Nitrogen 19 mg/dL (8-24); Bun/Creatinine Ratio 24.3 (12.0-20.0); CO2, Blood 25 mmol/L (21-32); Calcium, Blood 8.9 mg/dL (8.5-10.1); Chloride, Blood 111 mmol/L (98-108); Creatinine, Blood 0.78 mg/dL (0.40-1.00); Globulin, Blood 3.7 g/dL (2.2-4.0); Glomerular Filtration Rate >60 (60-); Glucose, Blood 128 mg/dL (70-99); Potassium, Blood 3.8 mmol/L (3.5-5.5); Sodium, Blood 143 mmol/L (136-145); Total Protein, Blood 6.6 g/dL (6.4-8.2)
[2018-10-20 22:50] LABS: Source, Urine Clean Catch
[2018-10-20 22:54] LABS: Bilirubin, Urine Neg (Neg); Blood, Urine 1+ (Neg); Glucose Qualitative, Urine Neg (Neg); Ketones, Urine Neg (Neg); Leukocyte Esterase, Urine 1+ (Neg); Nitrite, Urine Neg (Neg); Protein, Urine 1+ (Neg); Specific Gravity, Urine 1.025 (1.003-1.022); Urobilinogen, Urine 1+ (Normal)
[2018-10-20 22:59] LABS: Appearance, Urine Clear (Clear); Color, Urine Yellow (P-Yellow)
[2018-10-20 23:00] LABS: Bacteria Mod /hpf; Red Blood Cells, Urine 0-2 /hpf (0-2); Squamous Epithelial Cells Few /hpf (Few)
[2018-10-21 05:42] LABS: BASOPHILS ABSOLUTE AUTO 0.02 K/mm3 (0.00-0.23); BASOPHILS PERCENT AUTO 0 % (0-2); EOSINOPHILS PERCENT AUTO 0 % (0-6); Hematocrit 38.4 % (33.0-51.0); Hemoglobin 12.2 g/dL (11.5-16.0); IMMATURE GRAN ABSOLUTE AUTO 0.04 K/mm3 (0.00-0.10); IMMATURE GRAN PERCENT AUTO 0 % (0-1); LYMPHOCYTES ABSOLUTE AUTO 0.66 K/mm3 (0.84-5.20); LYMPHOCYTES PERCENT AUTO 6 % (21-46); MONOCYTES ABSOLUTE AUTO 0.16 K/mm3 (0.16-1.47); MONOCYTES PERCENT AUTO 2 % (4-13); Mean Corpuscular HGB Conc 31.8 g/dL (31.5-36.5); Mean Corpuscular Volume 91 fL (80-100); Mean Platelet Volume 10.3 fL (9.1-12.4); NEUTROPHILS ABSOLUTE AUTO 9.66 K/mm3 (1.96-9.15); NEUTROPHILS PERCENT AUTO 92 % (41-73); Platelet Count 190 K/mm3 (150-400); RDW Coefficient Variation 16.4 % (11.7-14.2); RDW Standard Deviation 54.8 fL (35.1-46.3); White Blood Cell Count 10.54 K/mm3 (4.00-11.30)
--- NOTE | 2018-10-21 07:30 | NUR ---
new admit, sob,but stated she slept well when participating in bsr, with day shift, 4.5L via nc, ns infusing with no s/sx of infiltration or infection, call light in reach.
--- NOTE | 2018-10-21 13:08 | NUR ---
Pal Spiritual Care intial visit: Muna was in good spirits. She smiles easily and has a phuong, lif-long toan in God. Her spouse of 63 years, grandson, and g-grandson present in room. She tells me she is here b/c she hurt her foot. Family is visiting from [facility], and she finds this hospitalization a hinderance. That said, she is talkative and cheerful. She appears to have accepted her advanced COPD and it's progression. She is not afraid of , but feels she will know when "its time." She is happy with her Full Code status. Facilitated toan review and prayer with family/pt. No fears or concerns presented. Muna denies pain/anxiety. She appears well-supported by family. I will remain available.
--- NOTE | 2018-10-21 16:58 | NUR ---
SHIFT SUMMARY PT AXO X4, PLEASANT AND COOPERATIVE WITH CARE. PT MEDICATED PER EMAR FOR PAIN. PT UP WITH 1 ASSIST, FWW AND GB. PT SELF-CATH PRN, X1 THIS SHIFT WITH 600ML OUT. HOME MEDICATIONS VERIFIED WITH PT, DR HU NOTIFIED. BED IN LOW POSITION, CALL LIGHT WITHIN REACH. PT HAS OUT OF TOWN VISITORS AT HOME THAT SHE IS EAGER TO RETURN HOME TO.
--- NOTE | 2018-10-22 07:23 | NUR ---
sob, 5L via rebreather or nc, call light in reach, bsr given to day staff,
--- NOTE | 2018-10-22 19:01 | NUR ---
PT RECEIVED C-T OF LEFT FOOT, SEE IMAGING NOTE FOR DETAILS. PT STARTED ON IV VANCO TODAY BY DR HU. PT REPORTED INCREASED PAIN TO HER LEFT FOOT WITH MOVEMENT AND ATTEMPTING TO STAND. MEDICATED FOR PAIN PER EMAR X2 TODAY. WILL CONTINUE TO MONITOR AND REPORT TO ONCOMING RN
[2018-10-23 06:14] LABS: Vancomycin, Random 6.6 ug/mL
--- NOTE | 2018-10-23 07:23 | NUR ---
call light in reach, saline locked, 4L via nc, walking rounds completed with day staff
--- NOTE | 2018-10-23 11:30 | NUR ---
Initial palliative care consult: Muna is a 78 year old with a history of COPD on home O2 5-8 l/min, asthma, HTN, hyperlipidemia, GERD and urinary retention. She dropped a can of fruit cocktail on her left foot. Her left foot is red and swollen. She reports that her pain is not managed well on IV medications. Pt states she will be switching to PO pain meds today as the MD has encouraged her to be up and ambulating. She states that tests on her left foot do not show any broken bones. Muna reports she lives with her of nearly 63 years. She states she has not driven since February when she was hospitalized for her COPD. She states her has been helping to take care of things around the house - cleaning, shopping and helping her as needed. She reports that he was in the and was gone a lot. She reports that normally she manages the house, shopping, cleaning, cooking, bills, etc. This has been a big change for him to take over some of the things that she does and she reports that he has been doing a good job. They have grown children and grandchildren. Their closest family is in the [facility]. They also have children in [place]. She reports that he is in his early 80s and in very good health. Currently she is on 5 l/min of O2 and denies any SOB at rest. She is able to have a conversation without becoming SOB. She reports she will be requesting PO pain meds prior to going for a walk. She denies any current symptoms at this time other than swelling and discomfort to her left foot. Briefly discussed AD/POLST. She states that she had recent discussions with her family and that she completed a will. She confirms that at this time she wishes to remain a full code as her family was resistant to other options. She states that she is accepting of this and would like to remain a full code. She did state that she told her family that she would not want any retirement life support. She feels that she has enough support at home with her and that she doesn't foresee any other needs at this time.
--- NOTE | 2018-10-23 18:30 | NUR ---
ALERT. ORIENTED. PAIN MEDS ADJUSTED AND WORKING WELL. UNLABORED RESPIRATIONS. SELF CATHS. HAS BEEN AMBULAING IN ROOM WITH STANDBY ASSIST TO BATHROOM. IV PATENT. NO ACUTE CHANGES. LEG ON PILLOW. ABLE TO MAKE NEEDS KNOWN. TM
[2018-10-24 05:37] LABS: BASOPHILS ABSOLUTE AUTO 0.04 K/mm3 (0.00-0.23); BASOPHILS PERCENT AUTO 1 % (0-2); EOSINOPHILS ABSOLUTE AUTO 0.23 K/mm3 (0.00-0.68); EOSINOPHILS PERCENT AUTO 4 % (0-6); Hematocrit 39.5 % (33.0-51.0); Hemoglobin 12.5 g/dL (11.5-16.0); IMMATURE GRAN ABSOLUTE AUTO 0.05 K/mm3 (0.00-0.10); IMMATURE GRAN PERCENT AUTO 1 % (0-1); LYMPHOCYTES ABSOLUTE AUTO 1.89 K/mm3 (0.84-5.20); LYMPHOCYTES PERCENT AUTO 29 % (21-46); MONOCYTES PERCENT AUTO 9 % (4-13); Mean Corpuscular HGB 28.6 pg (26.0-34.0); Mean Corpuscular HGB Conc 31.6 g/dL (31.5-36.5); Mean Corpuscular Volume 90 fL (80-100); Mean Platelet Volume 9.9 fL (9.1-12.4); NEUTROPHILS ABSOLUTE AUTO 3.77 K/mm3 (1.96-9.15); NEUTROPHILS PERCENT AUTO 57 % (41-73); Platelet Count 241 K/mm3 (150-400); RDW Coefficient Variation 15.9 % (11.7-14.2); RDW Standard Deviation 52.8 fL (35.1-46.3); Red Blood Cell Count 4.37 M/mm3 (3.80-5.20); White Blood Cell Count 6.58 K/mm3 (4.00-11.30)
--- NOTE | 2018-10-24 05:39 | NUR ---
SHIFT SUMMARY NO ACUTE CHANGES THIS SHIFT. PT SLEPT WELL. AOX4. VSS. DENIES N/V/D & SOB @REST. ON 5L SUPPLEMENTAL O2 W/SPO2 >90% & E/U RESPIRATIONS. REPORTS SOME SOB W/AMBULATION R/T PAIN IN LLE, MEDICATED 2X W/TYLENOL PER ORDERS. LLE IS RED, HOT TO TOUCH, EDEMATOUS & PAINFUL WHEN PT STANDS & PUTS WEIGHT ON FOOT, NO DRAINAGE NOTED. SELF CATHS FOR HX RETENTION. CALL LIGHT IN REACH & I WILL CONTINUE TO MONITOR.
[2018-10-24 06:04] LABS: Albumin, Blood 2.5 g/dL (3.4-5.0); Anion Gap 6 mmol/L (6-16); Blood Urea Nitrogen 19 mg/dL (8-24); Bun/Creatinine Ratio 24.9 (12.0-20.0); CO2, Blood 27 mmol/L (21-32); Calcium, Blood 9.3 mg/dL (8.5-10.1); Chloride, Blood 107 mmol/L (98-108); Creatinine, Blood 0.76 mg/dL (0.40-1.00); Glomerular Filtration Rate >60 (60-); Glucose, Blood 104 mg/dL (70-99); Phosphorus, Blood 5.3 mg/dL (2.5-4.9); Potassium, Blood 4.3 mmol/L (3.5-5.5); Sodium, Blood 140 mmol/L (136-145)
--- NOTE | 2018-10-24 16:38 | NUR ---
SUMMARY PT IS A/O X4, PLEASANT AFFECT. SHE IS UP SBA, ABLE TO BR WT L FOOT HOWEVER STATES PAINFUL WITH MOVEMENT/WTBRG. DX LLE CELLULITIS, L FOOT CONTINUES RED, WARM, TENDER HOWEVER NO SWELLING @ THIS TIME. SCHEDULED TRAMADOL & TYLENOL HAVE PROVIDED GOOD PAIN RELIEF/CONTROL. IV ANTIBX CONTINUE. VSS. HX COPD, O2 @ 5L HOME DOSE, RT MANAGING BREATHING TX'S.
--- NOTE | 2018-10-25 03:17 | NUR ---
SHIFT SUMMARY NO CHANGES THIS SHIFT. PT HAS RESTED ON AND OFF T/O THE NIGHT. PAIN IN FOOT WELL CONTROLLED WITH SCHEDULED TYLENOL. PT AMBULATIING WITHOUT DIFFICULTY. PT IS HAPPY WITH THE PROGRESS SHE HAS MADE AND FEELS READY TO GO HOME, AND DOES NOT WANT TO WAIT UNTIL FRIDAY. SHE ASK THAT I DISCUSS THIS WITH DAY RN, SO THAT THIS CAN BE RELAYED TO DAY HOSPITALIST. PT A/OX4, PLESANT AND COOPERATIVE WITH CARE. O2 IN PLACE AT HER BASELINE. RESTFUL NIGHT. WILL CONTINUE TO MONITOR AND REPORT TO ONCOMING RN.
[2018-10-25 05:06] LABS: Hematocrit 40.8 % (33.0-51.0); Mean Corpuscular HGB 29.5 pg (26.0-34.0); Mean Corpuscular HGB Conc 31.9 g/dL (31.5-36.5); Mean Platelet Volume 9.6 fL (9.1-12.4); Platelet Count 265 K/mm3 (150-400); RDW Coefficient Variation 15.9 % (11.7-14.2); Red Blood Cell Count 4.41 M/mm3 (3.80-5.20); White Blood Cell Count 7.08 K/mm3 (4.00-11.30)
[2018-10-25 05:20] LABS: Mean Corpuscular Volume 93 fL (80-100)
[2018-10-25 05:24] LABS: Albumin, Blood 2.6 g/dL (3.4-5.0); Anion Gap 5 mmol/L (6-16); Blood Urea Nitrogen 17 mg/dL (8-24); Bun/Creatinine Ratio 22.8 (12.0-20.0); CO2, Blood 28 mmol/L (21-32); Calcium, Blood 9.5 mg/dL (8.5-10.1); Chloride, Blood 105 mmol/L (98-108); Creatinine, Blood 0.74 mg/dL (0.40-1.00); Glomerular Filtration Rate >60 (60-); Glucose, Blood 92 mg/dL (70-99); Phosphorus, Blood 3.3 mg/dL (2.5-4.9); Potassium, Blood 4.1 mmol/L (3.5-5.5); Sodium, Blood 138 mmol/L (136-145)
[2018-10-25 05:43] LABS: BASOPHILS PERCENT MAN 0 % (0-2); EOSINOPHILS ABSOLUTE MAN 0.42 K/mm3 (0.00-0.68); EOSINOPHILS PERCENT MAN 6 % (0-6); LYMPHOCYTES ABSOLUTE MAN 1.77 K/mm3 (0.84-5.20); LYMPHOCYTES PERCENT MAN 25 % (21-46); MONOCYTES ABSOLUTE MAN 0.42 K/mm3 (0.16-1.47); MONOCYTES PERCENT MAN 6 % (4-13); NEUTROPHILS ABSOLUTE MAN 4.46 K/mm3 (1.96-9.15); SEG NEUTROPHILS PERCENT MAN 63 % (41-73); TOTAL CELLS COUNTED 100
[2018-10-25 08:24] LABS: Vancomycin, Trough 6.3 ug/mL (5.0-10.0)
[2018-10-25] MEDS ORDERED: CHOL10002 PO (12:01)
[2018-10-25] MEDS ORDERED: DOXY100 PO (12:02)
--- NOTE | 2018-10-25 13:42 | NUR ---
discharge PT STATE FEELING IMPROVED, HOPEFUL TO GO HOME TODAY. L FOOT REDNESS & SWELLING APPEARS IMPROVED, NO SWELLING @ THIS TIME, REDNESS CONTINUES HOWEVER LESS BRIGHT & HAS RECEDED FROM PREVIOUS DAY. DR SALAZAR IN TO ASSESS, STATE PT MAY GO HOME, PLACE ORDERS. IV D/C INTACT. SCRIPT FAXED TO [employer] [facility]/REQUEST. D/C INSTRUCT REVIEWED W PT. HARD COPY FWW SCRIPT PROVIDED. PT NOTIFIED IN FOR TRANSPORTATION HOME 1330. W/C ESCORT FROM HOSP PROVIDED W PORTABLE O2 @ 5L. PT IS PLEASANT & APPRECIATIVE.
== END 2018-10-25 13:30 | disposition home or self-care (01) | DRG 872 ==
LOC: ER 21:30 → MEDS 23:23 → ENPENDDIS 10-25 11:05 → MEDS 10-25 13:30
PROVIDERS: Emergency Medicine; Internal Medicine; ADMIT Hospitalist
DX: A41.9 Sepsis, unspecified organism (principal); Z94.84 Stem cells transplant status; L03.116 Cellulitis of left lower limb; J96.11 Chronic respiratory failure with hypoxia; M80.08XA Age-related osteoporosis with current pathological fracture, vertebra(e), initial encounter for fracture; Z79.82 Long term (current) use of aspirin; K21.9 Gastro-esophageal reflux disease without esophagitis; E78.5 Hyperlipidemia, unspecified; I10 Essential (primary) hypertension; Z87.891 Personal history of nicotine dependence; Z99.81 Dependence on supplemental oxygen; K44.9 Diaphragmatic hernia without obstruction or gangrene; R91.8 Other nonspecific abnormal finding of lung field; W22.8XXA Striking against or struck by other objects, initial encounter; J44.9 Chronic obstructive pulmonary disease, unspecified; R33.9 Retention of urine, unspecified
CPT/HCPCS: 36415; 71046; 73630; 73700; 80053; 80069; 80202; 81001; 82306; 82565; 83605; 84145; 85007; 85025; 85027; 85651; 86140; 87040; 87086; 93005; 93010; 94640; 94760; 96365; 96375; 97116; 97162; 97530; 99283-25; 99285-25; A9270; J0690; J0696; J1650; J2405; J3010; J3370; J7030; J7050; P9612

== ENCOUNTER 2019-12-01 16:22 | Inpatient (IN) | payer MEDICARE, OTHER ==
[~2019-12-01] VITALS: Ht 157.5 cm; Wt 52.9 kg
[~2019-12-01 16:22] MED LIST changes: +CHOL10002 PO
[2019-12-01 17:08] LABS: BASOPHILS ABSOLUTE AUTO 0.01 K/mm3 (0.00-0.23); BASOPHILS PERCENT AUTO 0 % (0-2); EOSINOPHILS PERCENT AUTO 0 % (0-6); Hematocrit 43.8 % (33.0-51.0); Hemoglobin 13.5 g/dL (11.5-16.0); IMMATURE GRAN ABSOLUTE AUTO 0.02 K/mm3 (0.00-0.10); IMMATURE GRAN PERCENT AUTO 0 % (0-1); LYMPHOCYTES ABSOLUTE AUTO 1.04 K/mm3 (0.84-5.20); LYMPHOCYTES PERCENT AUTO 16 % (21-46); MONOCYTES ABSOLUTE AUTO 0.31 K/mm3 (0.16-1.47); MONOCYTES PERCENT AUTO 5 % (4-13); Mean Corpuscular HGB 27.9 pg (26.0-34.0); Mean Corpuscular HGB Conc 30.8 g/dL (31.5-36.5); Mean Corpuscular Volume 91 fL (80-100); Mean Platelet Volume 10.1 fL (9.1-12.4); NEUTROPHILS ABSOLUTE AUTO 5.25 K/mm3 (1.96-9.15); NEUTROPHILS PERCENT AUTO 79 % (41-73); Platelet Count 238 K/mm3 (150-400); RDW Coefficient Variation 17.2 % (11.7-14.2); RDW Standard Deviation 57.7 fL (35.1-46.3); Red Blood Cell Count 4.84 M/mm3 (3.80-5.20); White Blood Cell Count 6.63 K/mm3 (4.00-11.30)
[2019-12-01 17:14] LABS: PCO2 Arterial 31.1 mmHg (35-45); PO2 Arterial 75.5 mmHg (80-100); pH Blood Arterial 7.41 (7.35-7.45)
[2019-12-01 17:46] LABS: Troponin I <0.015 ng/mL (0.000-0.040)
[2019-12-01 17:50] LABS: Alanine Aminotransfer (ALT/SGP 16 U/L (12-78); Albumin, Blood 3.6 g/dL (3.4-5.0); Albumin/Globulin Ratio 0.9 (0.8-1.8); Alk Phos 105 U/L (50-136); Anion Gap 7 mmol/L (6-16); Aspartate Aminotrans (AST/SGOT 17 U/L (12-37); Bilirubin, Total 0.2 mg/dL (0.1-1.0); Blood Urea Nitrogen 21 mg/dL (8-24); Bun/Creatinine Ratio 33.9 (12.0-20.0); CO2, Blood 21 mmol/L (21-32); Calcium, Blood 9.2 mg/dL (8.5-10.1); Chloride, Blood 112 mmol/L (98-108); Creatinine, Blood 0.62 mg/dL (0.40-1.00); Globulin, Blood 3.9 g/dL (2.2-4.0); Glomerular Filtration Rate >60 (60-); Glucose, Blood 193 mg/dL (70-99); Potassium, Blood 4.1 mmol/L (3.5-5.5); Sodium, Blood 140 mmol/L (136-145); Total Protein, Blood 7.5 g/dL (6.4-8.2)
[2019-12-01] MEDS ORDERED: ZOLOFT50 MG PO (18:47)
[2019-12-01] MEDS ORDERED: SPIRIVA RESPIMAT4 G3 INH (18:49)
[2019-12-01] MEDS ORDERED: FLUTICASONE-SA1 EA10 INH (18:50)
[2019-12-01] MEDS ORDERED: ROSUVASTATIN CAL5 MG PO (18:50)
[2019-12-01] MEDS ORDERED: ASCORBIC ACID500 MG PO (20:35)
[2019-12-01] MEDS ORDERED: PRED20 PO (20:38)
--- NOTE | 2019-12-01 21:00 | NUR ---
PT ADMITTED TO ROOM PCU 5 FROM ED. REPORT RECEIVED. PT SLIDE TRANSFERRED TO BED. NOTED PT VERY ANXIOUS AND MOVES ABOUT ANXIOUSLY. PT NEEDS TO BE CALMED AND INSTRUCTED TO SLOW BREATHING AND CALM HERSELF. O2 SATURATIONS ON 6 LITERS WAS 85%. INCREASED OXYGEN FLOW TO 8 LITERS PER MINUTE. PT THEN BEGINS TO HAVE SATURATIONS > 90 PERCENT. HAVE BEEN ABLE TO TITRATE OXYGEN BACK TO 7 L/M. PT ARRIVES TO ROOM AT 2009. WILL REVIEW CHART AND PLAN OF CARE FOR THIS PT.
[2019-12-02 02:34] LABS: Source, Urine Catheter
[2019-12-02 02:36] LABS: Appearance, Urine Clear (Clear); Bilirubin, Urine Neg (Neg); Blood, Urine 1+ (Neg); Color, Urine Yellow (P-Yellow); Glucose Qualitative, Urine 4+ (Neg); Ketones, Urine Neg (Neg); Leukocyte Esterase, Urine Neg (Neg); Nitrite, Urine Pos (Neg); Protein, Urine 2+ (Neg); Specific Gravity, Urine 1.025 (1.003-1.022); Urobilinogen, Urine NORM (Normal)
[2019-12-02 02:43] LABS: Bacteria Many /hpf; Red Blood Cells, Urine 0-2 /hpf (0-2); Squamous Epithelial Cells Rare /hpf (Few)
--- NOTE | 2019-12-02 03:31 | NUR ---
PT HAS REMAINED WITH SATURATIONS > 90 PERCENT. HAVE SPOKEN WITH PT'S DAUGHTER ON TELEPHONE AND UPDATE GIVEN. PT DOES SELF CATHETERIZE AT HOME, AND WHEN SHE WAS SETTING UP TO DO SELF CATH IN ROOM, PT BECOMES EXTREMELY DYSPNEIC WITH SATURATIONS AGAIN AT 85 PERCENT. SECONDARY TO PT'S HIGH EXERTIONAL DYSPNEA, 14 TURKISH SOTO PLACED SECONDARY TO TACHYPNEA AND URINARY RETENTION. PT IN AGREEMENT WITH PLAN. PT CURRENTLY RESTING IN BED. PT WAS A VERY GOOD HISTORIAN DURING INTERVIEW AND ASSESSMENT. WILL CONTINUE TO MONITOR PT.
[2019-12-02 04:11] LABS: BASOPHILS ABSOLUTE AUTO 0.01 K/mm3 (0.00-0.23); BASOPHILS PERCENT AUTO 0 % (0-2); EOSINOPHILS PERCENT AUTO 0 % (0-6); Hematocrit 39.6 % (33.0-51.0); Hemoglobin 12.5 g/dL (11.5-16.0); IMMATURE GRAN ABSOLUTE AUTO 0.02 K/mm3 (0.00-0.10); IMMATURE GRAN PERCENT AUTO 0 % (0-1); LYMPHOCYTES ABSOLUTE AUTO 0.58 K/mm3 (0.84-5.20); LYMPHOCYTES PERCENT AUTO 8 % (21-46); MONOCYTES ABSOLUTE AUTO 0.26 K/mm3 (0.16-1.47); MONOCYTES PERCENT AUTO 3 % (4-13); Mean Corpuscular HGB 28.3 pg (26.0-34.0); Mean Corpuscular HGB Conc 31.6 g/dL (31.5-36.5); Mean Corpuscular Volume 90 fL (80-100); Mean Platelet Volume 10.3 fL (9.1-12.4); NEUTROPHILS ABSOLUTE AUTO 6.72 K/mm3 (1.96-9.15); NEUTROPHILS PERCENT AUTO 89 % (41-73); Platelet Count 215 K/mm3 (150-400); RDW Coefficient Variation 17.3 % (11.7-14.2); RDW Standard Deviation 57.6 fL (35.1-46.3); Red Blood Cell Count 4.41 M/mm3 (3.80-5.20); White Blood Cell Count 7.59 K/mm3 (4.00-11.30)
[2019-12-02 04:29] LABS: Anion Gap 5 mmol/L (6-16); Blood Urea Nitrogen 19 mg/dL (8-24); Bun/Creatinine Ratio 24.7 (12.0-20.0); CO2, Blood 24 mmol/L (21-32); Calcium, Blood 8.6 mg/dL (8.5-10.1); Chloride, Blood 114 mmol/L (98-108); Creatinine, Blood 0.77 mg/dL (0.40-1.00); Glomerular Filtration Rate >60 (60-); Glucose, Blood 161 mg/dL (70-99); Potassium, Blood 4.1 mmol/L (3.5-5.5); Sodium, Blood 143 mmol/L (136-145)
--- NOTE | 2019-12-02 06:48 | NUR ---
PT HAS BEEN ABLE TO REST SOME THIS MORNING. SHE STATES THAT SHE IS FEELING MUCH BETTER. CONTINUES ON 7 L/M O2 PER HIGH FLOW NASAL CANNULA. MAINTAINS SATURATIONS > 90 PERCENT. PT CLAIMS THAT SHE WEARS 4 LITERS OXYGEN DURING DAY AND 5 LITERS OXYGEN AT NIGHT AT HOME. WILL CONTINUE TO MONITOR PT, AND WILL REPORT OFF TO ONCOMING RN.
--- NOTE | 2019-12-02 17:48 | NUR ---
SUMMARY NO ACUTE CHANGES NOTED THROUGH THE SHIFT. PT REMAINS ON 7 L O2 VIA NC, DYSPNEA W/EXERTION BUT STATES SHE "IS FEELING BETTER". PT WORKED WITH PHYSICAL THERAPY TODAY AND WAS ABLE TO GET UP TO THE CHAIR. PT IS TOLERATING SMALL AMOUNTS OF PO INTAKE, SOTO REMAINS PATENT, CLEAR YELLOW URINE NOTED. CALL LIGHT IN REACH, TM
[2019-12-02] MEDS ORDERED: MIRALAX17 GM PO (20:33)
[2019-12-03 04:17] LABS: BASOPHILS PERCENT AUTO 0 % (0-2); EOSINOPHILS PERCENT AUTO 0 % (0-6); Hematocrit 42.7 % (33.0-51.0); IMMATURE GRAN ABSOLUTE AUTO 0.02 K/mm3 (0.00-0.10); IMMATURE GRAN PERCENT AUTO 0 % (0-1); LYMPHOCYTES ABSOLUTE AUTO 0.55 K/mm3 (0.84-5.20); LYMPHOCYTES PERCENT AUTO 7 % (21-46); MONOCYTES ABSOLUTE AUTO 0.22 K/mm3 (0.16-1.47); MONOCYTES PERCENT AUTO 3 % (4-13); Mean Corpuscular HGB 27.8 pg (26.0-34.0); Mean Corpuscular HGB Conc 30.4 g/dL (31.5-36.5); Mean Corpuscular Volume 91 fL (80-100); Mean Platelet Volume 10.1 fL (9.1-12.4); NEUTROPHILS ABSOLUTE AUTO 7.15 K/mm3 (1.96-9.15); NEUTROPHILS PERCENT AUTO 90 % (41-73); Platelet Count 228 K/mm3 (150-400); RDW Coefficient Variation 17.4 % (11.7-14.2); RDW Standard Deviation 58.4 fL (35.1-46.3); Red Blood Cell Count 4.67 M/mm3 (3.80-5.20); White Blood Cell Count 7.94 K/mm3 (4.00-11.30)
[2019-12-03 04:39] LABS: Anion Gap 6 mmol/L (6-16); Blood Urea Nitrogen 27 mg/dL (8-24); Bun/Creatinine Ratio 35.1 (12.0-20.0); CO2, Blood 23 mmol/L (21-32); Calcium, Blood 8.6 mg/dL (8.5-10.1); Chloride, Blood 112 mmol/L (98-108); Creatinine, Blood 0.77 mg/dL (0.40-1.00); Glomerular Filtration Rate >60 (60-); Glucose, Blood 154 mg/dL (70-99); Potassium, Blood 4.8 mmol/L (3.5-5.5); Sodium, Blood 141 mmol/L (136-145)
--- NOTE | 2019-12-03 06:03 | NUR ---
SHIFT SUMMARY PT A&O X4. VSS. NO EVENTS OR CHANGES OVER NIGHT. MONITOR SHOWS SR, HR 80's. SPO2 > 92% ON 8L HI-ANGELES NC. CHARLES SILVA PATENT & DRAINING. WILL CONTINUE TO MONITOR & PROVIDE CARE UNTIL REPORT OFF TO DAY SHIFT RN.
--- NOTE | 2019-12-03 14:46 | NUR ---
Spiritual care visit conducted. Patient discusses her medical issues briefly and then wants to discuss her toan for nearly 45 minutes. Patient is a kind and a very devout Orthodoxy. Patient would energize herself as she would talk about her passion for serving [employer] and what that looks to have have toan in the time in history. I listen empathically and provide prayer. Patient responds well and shows signs of an elevated mood. I will continue to remain available to patient and family
--- NOTE | 2019-12-03 14:47 | NUR ---
pt fatigued from trying to work with pt. talkin on phone with family and expressing some stress will return.
--- NOTE | 2019-12-03 18:42 | NUR ---
SUMMARY NO ACUTE CHANGES NOTED THROUGH THE DAY, A&O X3 PT IS CURRENTLY ON 5 L VIA NC, VSS. PT IS TOLERATING PO INTAKE. CLEAR YELLOW URINE NOTED I SOTO. PT DENIES PAIN. 1 ASSIST TO BEDSIDE COMMODE. PT CALLS FOR ASSISTANCE PRN. CALL LIGHT IN REACH, WCTM
--- NOTE | 2019-12-04 06:38 | NUR ---
SHIFT SUMMARY PT A&O X4. VSS. MONITOR SHOWING SR, HR 80's-100. SPO2 > 90% ON 5-10L HI-ANGELES NC. PT REQUIRING INCREASE IN O2 FROM 5L TO 10L, UNABLE TO MAINTAIN SPO2, REQURING BREATHING TX DURING MIDDLE OF SHIFT, PT NOW BACK DOWN TO 6L HI-ANGELES NC, TOLERATING WELL. NO OTHER EVENTS OVER NIGHT. WILL CONTINUE TO MONITOR & PROVIDE CARE UNTIL REPORT OFF TO DAY SHIFT RN.
--- NOTE | 2019-12-04 10:08 | NUR ---
PT AWAKE THIS AM SITTING UP IN BED. PT ABLE TO SPEAK WITHOUT INTERUPPTION FOR EXTENDED AMT OF TIME; NO LABORED BREATHING NOTED DURING SPEECH. RESP RATE IS ELEVATED. PT STATES SHE HAS EPISODE OF SOB LAST NIGHT BUT IS IMPROVED THIS AM. PT C/O LEFT UPPER CHEST PAIN; ONLY W DEEP BREATH OR COUGH. PT WORKED W P.T. THIS AM.
--- NOTE | 2019-12-04 10:45 | NUR ---
DR NAM IN TO SEE PT. PT STATUS IS NOW MEDICAL NO TELE.
--- NOTE | 2019-12-04 19:15 | NUR ---
PT ARRIVED TO THE MEDICAL FLOOR FROM THE PCU VIA BED, A/OX3, PLEASANT AND COOPERATIVE, ON O2 AT 6L/MIN, THE PT WAS ORIENTED TO THE ROOM LAYOUT AND CALL SYSTEM CALL LIGHT IN REACH REPORT GIVEN TO NEHA GARZA
--- NOTE | 2019-12-04 22:10 | NUR ---
ALERT AND ORIENTED. RECEIVED HS MEDS, TALKATIVE, JOKED WITH NURSE. HOB ELEVATED. O2 PER NC. SOTO DRAINING. CALL LIGHT IN REACH. REQUESTED BREATHING TREATMENT - RT NOTIFIED, SEE RT NOTATIONS FOR DETAILS.
--- NOTE | 2019-12-05 05:06 | NUR ---
SHIFT SUMMARY AWAKE AT INTERVALS. HOB ELEVATED AND O2 PER NC. RESP TREATMENTS PER RT. SEE RT DOCUMENTAION FOR DETAILS. CALL LIGHT IN REACH
--- NOTE | 2019-12-05 17:33 | NUR ---
PT IS A/OX3, PLEASANT AND COOPERATIVE, THE PT IS UP IND IN HER ROOM THE PT REPORTES THAT SHE FEELS THAT SHE IS BREATHING A LITTLE EASIER TODAY, THE PTS O2 WAS TITRATED TO 5L/MIN AND SO FAR HAS TOLERATED THAT WELL, THE PT HAS BEEN UP IN THE CHAIR SINCE LUNCH UNTIL DINNER, PT IS CONCERNED THAT SHE HAS NOT HAD A SIGNIFICANT BM SINCE ADMISSION, BOWEL CARE WAS ORDERED AND GIVEN, THE PT HAS BEEN UP MOVING IN HER ROOM WITHOUT ASSITANCE T/O THE DAY, AND KNOWS HER LIMITATIONS, CALL LIGHT IN THE ROOM, NO OTHER CHANGES NOTICED THIS SHIFT
--- NOTE | 2019-12-06 07:06 | NUR ---
SHIFT SUMMARY PT IS A 79 Y/O FEMALE, ADMITTED FOR COPD EXACERBATION. SHE IS A&O X 3, INDEPENDENT IN THE ROOM. SHE WAS MEDICATED ONCE FOR NAUSEA AT HS WITH PRN ZOFRAN. NO COMPLAINTS OF PAIN OR SOB. VITAL SIGNS STABLE. SHE IS ON 5L OF O2, WHICH IS HER NORMAL HOME DOSE. PT STATES THIS AM THAT SHE IS FEELING "MUCH BETTER". NO OTHER ACUTE CHANGES IN PT CONDITION NOTED. REPORT GIVEN TO ONCOMING RN.
[2019-12-06] MEDS ORDERED: PANT40 PO (11:16)
[2019-12-06] MEDS ORDERED: Florastor250 MG PO (11:16)
[2019-12-06] MEDS ORDERED: ONDA4ODT MM (11:16)
--- NOTE | 2019-12-06 12:40 | NUR ---
DISCHARGE NOTE: DISCHARGE INSTRUCTIONS/EDUCATION GONE OVER WITH PT. PT DENIES ANY ADDITIONAL QUESTIONS AT THIS TIME. IV AND SOTO DISCONTINUED IN TACT. SHE WAS TAKEN TO HER HUSBANDS VEHICLE VIA W/C. DISCHARGED AT 1237.
== END 2019-12-06 12:40 | disposition home health service (06) | DRG 189 ==
LOC: ER 16:22 → PCU 16:23 → MEDS 12-04 18:35
PROVIDERS: Internal Medicine; Nurse Practitioner Acute Care; Physician Assistant; ADMIT Internal Medicine
DX: J96.20 Acute and chronic respiratory failure, unspecified whether with hypoxia or hypercapnia (principal); J44.1 Chronic obstructive pulmonary disease with (acute) exacerbation; Z94.84 Stem cells transplant status; Z20.828 Contact with and (suspected) exposure to other viral communicable diseases; I10 Essential (primary) hypertension; E78.5 Hyperlipidemia, unspecified; M81.0 Age-related osteoporosis without current pathological fracture; K21.9 Gastro-esophageal reflux disease without esophagitis; K44.9 Diaphragmatic hernia without obstruction or gangrene; Z87.440 Personal history of urinary (tract) infections; Z99.81 Dependence on supplemental oxygen; Z87.891 Personal history of nicotine dependence; Z79.82 Long term (current) use of aspirin
CPT/HCPCS: 36415; 36600; 51702; 71045; 80048; 80053; 81001; 82803; 83880; 84145; 84484; 85025; 85379; 87070; 87077; 87086; 87186; 87205; 93005; 93010; 94640; 94644; 94760; 94762; 96365; 96366; 96375; 96376; 97110; 97112; 97162; 99285-25; A9270-GY; G0378; J0696; J1650; J2405; J2930; J3475; J7050; U0003

== ENCOUNTER 2020-09-08 13:53 | Emergency (ER) | payer MEDICARE, OTHER ==
[~2020-09-08] VITALS: Ht 157.5 cm; Wt 52.6 kg
[~2020-09-08 13:53] MED LIST changes: +ASCORBIC ACID500 MG PO; +FLUTICASONE-SA1 EA10 INH; +Florastor250 MG PO; +ONDA4ODT MM; +ROSUVASTATIN CAL5 MG PO; +SPIRIVA RESPIMAT4 G3 INH; +ZOLOFT50 MG PO
[2020-09-08 15:08] LABS: BASOPHILS ABSOLUTE AUTO 0.03 K/mm3 (0.00-0.23); BASOPHILS PERCENT AUTO 0 % (0-2); EOSINOPHILS PERCENT AUTO 0 % (0-6); Hematocrit 45.2 % (33.0-51.0); Hemoglobin 14.6 g/dL (11.5-16.0); IMMATURE GRAN ABSOLUTE AUTO 0.09 K/mm3 (0.00-0.10); IMMATURE GRAN PERCENT AUTO 1 % (0-1); LYMPHOCYTES ABSOLUTE AUTO 1.04 K/mm3 (0.84-5.20); LYMPHOCYTES PERCENT AUTO 9 % (21-46); MONOCYTES ABSOLUTE AUTO 0.54 K/mm3 (0.16-1.47); MONOCYTES PERCENT AUTO 5 % (4-13); Mean Corpuscular HGB 30.4 pg (26.0-34.0); Mean Corpuscular HGB Conc 32.3 g/dL (31.5-36.5); Mean Corpuscular Volume 94 fL (80-100); Mean Platelet Volume 10.2 fL (9.1-12.4); NEUTROPHILS ABSOLUTE AUTO 10.37 K/mm3 (1.96-9.15); NEUTROPHILS PERCENT AUTO 86 % (41-73); Platelet Count 234 K/mm3 (150-400); RDW Coefficient Variation 15.6 % (11.7-14.2); RDW Standard Deviation 54.1 fL (35.1-46.3); Red Blood Cell Count 4.81 M/mm3 (3.80-5.20); White Blood Cell Count 12.07 K/mm3 (4.00-11.30)
[2020-09-08 15:29] LABS: Alanine Aminotransfer (ALT/SGP 17 U/L (12-78); Albumin, Blood 3.3 g/dL (3.4-5.0); Albumin/Globulin Ratio 0.9 (0.8-1.8); Alk Phos 85 U/L (50-136); Anion Gap 6 mmol/L (6-16); Aspartate Aminotrans (AST/SGOT 10 U/L (12-37); Bilirubin, Total 0.4 mg/dL (0.1-1.0); Blood Urea Nitrogen 25 mg/dL (8-24); Bun/Creatinine Ratio 29.3 (12.0-20.0); CO2, Blood 25 mmol/L (21-32); Calcium, Blood 9.4 mg/dL (8.5-10.1); Chloride, Blood 108 mmol/L (98-108); Creatinine, Blood 0.85 mg/dL (0.40-1.00); Globulin, Blood 3.8 g/dL (2.2-4.0); Glomerular Filtration Rate >60 (60-); Glucose, Blood 270 mg/dL (70-99); Potassium, Blood 4.2 mmol/L (3.5-5.5); Sodium, Blood 139 mmol/L (136-145); Total Protein, Blood 7.1 g/dL (6.4-8.2); Troponin I <0.015 ng/mL (0.000-0.040)
[2020-09-08] MEDS ORDERED: CEPH500 PO (17:31)
== END 2020-09-08 19:35 | disposition home or self-care (01) ==
LOC: ER 13:53
PROVIDERS: Physician Assistant
DX: L03.114 Cellulitis of left upper limb (principal); Z79.899 Other long term (current) drug therapy
CPT/HCPCS: 36415; 71045; 71260; 80053; 83880; 84484; 85025; 85379; 93005; 93010; 94640; 96365; 96366; 99285-25; J0696; Q9967

== ENCOUNTER → 2021-04-05 | Outpatient (CLI) | payer MEDICARE, OTHER ==
[2021-04-07 14:31] LABS: CORONAVIRUS (COVID19) CSH-NRL Negative (Negative)
== END | disposition home or self-care (01) ==
LOC: LAB SHORT 17:56
PROVIDERS: Chiropractor
DX: Z20.822 Contact with and (suspected) exposure to COVID-19 (principal)
CPT/HCPCS: U0003

== ENCOUNTER → 2021-06-14 | Outpatient (CLI) | payer MEDICARE, OTHER | LOC: LAB SHORT 14:11 → LAB 14:11 | DX: J02.9 Acute pharyngitis, unspecified (principal); N39.0 Urinary tract infection, site not specified | CPT/HCPCS: 87081 ==

== ENCOUNTER → 2021-06-15 | Outpatient (CLI) | payer MEDICARE, OTHER | END | disposition home or self-care (01) | LOC: LAB SHORT 08:52 | DX: R05.9 Cough, unspecified (principal) | CPT/HCPCS: 87070; 87077; 87186; 87205 ==

== ENCOUNTER → 2021-06-26 | Outpatient (CLI) | payer MEDICARE, OTHER | END | disposition home or self-care (01) | LOC: LAB SHORT 09:34 → LAB 09:34 | DX: R05.9 Cough, unspecified (principal) | CPT/HCPCS: 87070; 87205 ==

== ENCOUNTER → 2021-07-17 | Outpatient (CLI) | payer MEDICARE, OTHER | END | disposition home or self-care (01) | LOC: LAB 09:52 → LAB SHORT 09:52 | DX: N39.0 Urinary tract infection, site not specified (principal) | CPT/HCPCS: 87077; 87086; 87186 ==

== ENCOUNTER → 2021-09-21 | Outpatient (CLI) | payer MEDICARE, OTHER | END | disposition home or self-care (01) | LOC: LAB SHORT 09:32 | DX: J44.1 Chronic obstructive pulmonary disease with (acute) exacerbation (principal) | CPT/HCPCS: 87070; 87205 ==

== ENCOUNTER → 2021-11-28 | Outpatient (CLI) | payer MEDICARE, OTHER | END | disposition home or self-care (01) | LOC: LAB SHORT 04:50 | DX: R05.9 Cough, unspecified (principal) | CPT/HCPCS: 87070; 87077; 87147; 87186; 87205 ==